=== PATIENT | male | born 1990 | race Caucasian/White ===

== ENCOUNTER 2018-04-15 09:39 | Emergency (ER) | payer MEDICAID ==
[2018-04-15] MEDS ORDERED: Ketorolac INJ* 60 MG/2 ML VIAL IM ONE (11:18)
--- NOTE | 2018-04-15 11:59 | RAD ---
HISTORY: Rt side facial trauma COMPARISONS: None TECHNIQUE: Multiple contiguous axial CT scans were obtained of the face without intravenous contrast, with coronal and sagittal multiplanar reformations. FINDINGS: BONES: There is no displaced fracture or dislocation. The orbital rim is intact. The zygomatic arch is intact. The pterygoid plates are intact. ORBITS: The globes are round. The optic nerves are symmetric. The extraocular musculature is normal. There is no post septal or intraconal inflammatory change. There is no retrobulbar hematoma. PARANASAL SINUSES: There is mucosal thickening of the left maxillary sinus. BRAIN AND SOFT TISSUE: Unremarkable. OTHER: There is carious disease of the first right mandibular molar and of the first left maxillary bicuspid. IMPRESSION: NO FACIAL FRACTURE. CARIOUS DISEASE
[2018-04-15] MEDS ORDERED: traMADol TAB* 50 MG PO ONE (12:40)
--- NOTE | 2018-04-15 12:46 | ED ---
Head Injury - HPI Summary HPI Summary: Pt here w/ facial/dental injury prior to arrival. Was playing basketball with cohort while residing at [facility] this morning when he was struck in the Rt side of his face with an elbow? Fractured a tooth which he reports is painful. He also has a black eye - denies LOC, change in vision, pain w/ ocular movement, [place], neck pain, numbness, tingling, weakness, dizziness, N/V. He reports to h/o multi drug use but is requesting pain control as he's in a lot of pain. - History Of Current Complaint Chief Complaint: EDDentalPain Stated Complaint: FACIAL INJURIES Time Seen by Provider: 04/15/18 10:43 Hx Obtained From: Patient Pain Intensity: 10 - Allergies/Home Medications Allergies/Adverse Reactions: Allergies Allergy/AdvReac Type Severity Reaction Status Date / Time No Known Allergies Allergy Verified 04/15/18 09:48 PMH/Surg Hx/FS Hx/Imm Hx Previously Healthy: Yes Endocrine/Hematology History: Denies: Hx Anticoagulant Therapy, Hx Blood Disorders Infectious Disease History: Yes Infectious Disease History: Denies: Traveled Outside the [place] in Last 30 Days - Family History Known Family History: Positive: Unknown - Social History Lives: [facility] - [facility] Hx Substance Use: Yes Review of Systems Constitutional: Negative Negative: Fatigue Eyes: Negative Negative: Photophobia, Blurred Vision, Diplopia Positive: Dental Pain. Negative: Epistaxis Cardiovascular: Negative Respiratory: Negative Gastrointestinal: Negative Positive: no symptoms reported Musculoskeletal: Negative Positive: Bruising Neurological: Negative Psychological: Normal All Other Systems Reviewed And Are Negative: Yes Physical Exam Triage Information Reviewed: Yes Vital Signs On Initial Exam: Initial Vitals Temp Pulse Resp BP Pulse Ox 97.5 F 95 18 134/75 98 04/15/18 09:42 04/15/18 09:42 04/15/18 09:42 04/15/18 09:42 04/15/18 09:42 Vital Signs Reviewed: Yes Appearance: Positive: Well-Appearing, Well-Nourished, Pain Distress - he reports pain but appears mostly comfortable Skin: Positive: Warm, Skin Color Reflects Adequate Perfusion, Dry - purpuric ecchymosis about Rt orbital region - no external bleeding, no skin breakdown; this area is TTP and along medial border Head/Face: Positive: Other - other than above, normal - no step off, no battlesign, NTTP and no deformity Eyes: Positive: Normal - no photophobia, EOMI, CARTER, Conjunctiva Clear. Negative: Conjunctiva Inflammed, Discharge ENT: Positive: Normal ENT inspection, Hearing grossly normal, Pharynx normal - no signs of trauma to tongue, buccal mucosa, TMs normal - no hemotympanum. Negative: Nasal drainage Dental: Positive: Dental Fracture @ - #30 - gingiva intact, no bleeding - pulp exposed Neck: Positive: Supple, Nontender - FROM w/o pain or restriction Respiratory/Lung Sounds: Positive: Breath Sounds Present Cardiovascular: Positive: Pulses are Symmetrical in both Upper and Lower Extremities Abdomen Description: Positive: Nontender, Soft Musculoskeletal: Positive: Normal, Strength/ROM Intact - no pain or restriction w/ mandible movements Neurological: Positive: Normal, Sensory/Motor Intact, Alert, Oriented to Person Place, Time, CN Intact II-III Psychiatric: Positive: Anxious - but polite and cooperative Procedures - Procedure Summary Procedure Summary: Rt inferior alveolar block w/ bupivicaine - preceded with lidocaine viscous swish and spit. No blood loss. Pt tolerated well. Reports no pain relief of effected tooth. 2ND attempt at dental block at base of effected tooth with bupivicaine - no blood loss. Pt tolerated well but reports minimal improvement. Dycal placed - pt reports slightly more improvement of pain. Diagnostics - Vital Signs Vital Signs Temp Pulse Resp BP Pulse Ox 04/15/18 09:42 97.5 F 95 18 134/75 98 - Laboratory Lab Statement: Any lab studies that have been ordered have been reviewed, and results considered in the medical decision making process. Re-Evaluation - Re-Evaluation First Eval Change: Unchanged Second Eval Change: Improved Head Injury Course/Dx Course Of Treatment: CT report: no facial fx, carrious dz. Pt was offered dental block for acute relief of dental pain. First an inferior alveolar block was attempted but pt reports he still felt tooth pain. 2nd a more local dental block was implemented along with dycal sealant. Pt reports some improvement but still has pain and concerned about block wearing off and sealant moving so tramadol was rx'd. Discussion about h/o illicit drug use but given his current injuries and lack of pain relief with mulitple non-narcotic efforts as mentioned above as well as toradol, this medication was chosen, if for nothing else to aid in sleep until pt can get tooth fixed. Pt advised on close f/u w/ dentist and if he develops danger s/sx of head injury to return to ED. No concern for concussion at this time. - Diagnoses Provider Diagnoses: Periorbital hematoma of right eye, Tooth fracture Discharge - Sign-Out/Discharge Documenting (check all that apply): Discharge/Admit/Transfer - Discharge Plan Condition: Critical Disposition: SUBSTANCE ABUSE REHAB Prescriptions: Ibuprofen TAB* [Motrin TAB* 800 MG] 800 mg PO Q8HR PRN #20 tab PRN Reason: Pain traMADol TAB* [Ultram*] 50 mg PO Q6HR PRN #8 tab MDD 4 PRN Reason: Pain Patient Education Materials: Black Eye (ED), Acute Dental Trauma (ED) Referrals: [facility] [Outside] Additional Instructions: Follow-up with a dentist KAREEM for repair of your dental fracture. You have been given a short supply of tramadol and ibuprofen pain medications which were sent to [facility] in [place]. *If you develop headache, vision change, intractable vomiting, numbness, tingling, or weakness, seek medical attention through staff at [facility] and return to ED as needed. - Billing Disposition and Condition Condition: CRITICAL Disposition: Substance Abuse Rehab
[2018-04-15 13:09] VITALS: BP 149/78
== END 2018-04-15 13:09 ==
LOC: ED 09:39
DX: S00.11XA Contusion of right eyelid and periocular area, initial encounter (principal); S02.5XXA Fracture of tooth (traumatic), initial encounter for closed fracture; K08.89 Other specified disorders of teeth and supporting structures; W50.0XXA Accidental hit or strike by another person, initial encounter; Y92.9 Unspecified place or not applicable
CPT/HCPCS: 70486; 96372; 99282; A9270-GY; J1885

== ENCOUNTER 2019-01-30 14:57 | Emergency (ER) | payer MEDICAID, OTHER ==
[2019-01-30 15:48] LABS: Urine Appearance Clear; Urine Bilirubin Negative (Negative); Urine Blood Negative (Negative); Urine Color Yellow; Urine Glucose Negative (Negative); Urine Ketones Negative (Negative); Urine Nitrite Negative (Negative); Urine Protein Negative (Negative); Urine Specific Gravity 1.004 (1.010-1.030); Urine Urobilinogen Negative (Negative)
[2019-01-30 15:48] LABS: ABS Basophils 0 10^3/ul (0-0.2); ABS Eosinophils 0.2 10^3/ul (0-0.6); ABS Lymphocytes 1.6 10^3/ul (1.0-4.8); ABS Monocytes 1.3 10^3/ul (0-0.8); ABS Neutrophils 5.1 10^3/ul (1.5-7.7); ABS Nucleated RBC 0 10^3/ul; Hematocrit 41 % (36-46); Hemoglobin 14.4 g/dL (14.0-18.0); Lymphocyte % 19.5 %; Mean Corpuscular HGB Conc 35 g/dL (31-36); Mean Corpuscular Hemoglobin 30 pg (27-31); Mean Corpuscular Volume 86 fL (80-94); Mean Platelet Volume 7.2 fL (7.4-10.4); Nucleated Red Blood Cells % 0.1; Platelet Count 199 10^3/uL (150-450); Red Blood Count 4.76 10^6 /uL (4.18-5.48); Red Cell Distribution Width 13 % (10.5-15); White Blood Count 8.3 10^3/uL (3.5-10.8)
[2019-01-30 15:54] LABS: Albumin/Globulin Ratio 1.3 (1-3); BUN/Creatinine Ratio 9.6 (8-20); C Reactive Protein 49.58 mg/L (<8.01); Calcium 8.9 mg/dL (8.6-10.3); EGFR African American 134.5 (>60); EGFR Non-African American 111.1 (>60); Globulin 3.2 g/dL (2-4); Magnesium 1.9 mg/dL (1.9-2.7); Potassium 3.9 mmol/L (3.5-5.0); Total Bilirubin 0.8 mg/dL (0.2-1.0); Total Protein 7.2 g/dL (6.4-8.9)
[2019-01-30 16:13] LABS: Barbiturates Urine Screen None Detected (None Detect); Benzodiazepine Urine Screen None Detected (None Detect); Urine Cannabinoids Screen None Detected (None Detect)
[2019-01-30] MEDS ORDERED: Cyclobenzaprine TAB* 10 MG PO ONE (16:43)
--- NOTE | 2019-01-30 16:52 | ED ---
Back Pain - HPI Summary HPI Summary: Patient is a 28-year-old male who presents to the ED with multiple complaints. He states he has been having low back pain over the course of today and states "my liver and kidneys are shutting down." He denies any urinary symptoms. He states he has had 2 episodes of emesis just before arrival. He denies any fevers, however endorses sweats and chills. He has never had this pain before. He states he takes heroin daily. He states he was sober for about 7 days until 2 days ago when he used heroin again, was unable to get heroin today so "took a white substance" as well as took 8mg suboxone. He states he got this through a friend and is not prescribed these medications. He states "I want to ." He states "I am unable to live with drugs and unable to lift without them and I can't take it anymore." He is tearful. - History of Current Complaint Chief Complaint: EDFlankPain Stated Complaint: LOWER BACK PAIN PER EMS Time Seen by Provider: 01/30/19 14:59 Hx Obtained From: Patient Onset/Duration: Sudden Onset Onset/Duration: Started Hours Ago Timing: Constant Back Pain Location: Is Discrete @ - low back throughout Severity Initially: Moderate Severity Currently: Moderate Pain Intensity: 10 Pain Scale Used: 0-10 Numeric Character: Aching Aggravating Symptom(s): Movement Alleviating Symptom(s): Rest, Position Associated Signs And Symptoms: Positive: Negative - Risk Factors AAA Risk Factors: Negative TAD Risk Factors: Negative Cauda Equina Risk Factors: Negative Epidural Abscess Risk Factors: IV Drug Use - Allergies/Home Medications Allergies/Adverse Reactions: Allergies Allergy/AdvReac Type Severity Reaction Status Date / Time No Known Allergies Allergy Verified 04/15/18 09:48 PMH/Surg Hx/FS Hx/Imm Hx Previously Healthy: Yes - drug use Endocrine/Hematology History: Denies: Hx Anticoagulant Therapy, Hx Blood Disorders - Immunization History Hx Pertussis Vaccination: No Immunizations Up to Date: No Infectious Disease History: Yes Infectious Disease History: Denies: Traveled Outside the [place] in Last 30 Days - Family History Known Family History: Positive: Unknown - Social History Occupation: Unemployed Lives: Alone Alcohol Use: Daily Hx Substance Use: Yes Substance Use Type: Reports: Cocaine, Heroin, Marijuana, Synthetic Drugs Smoking Status (MU): Heavy Every Day Tobacco Smoker Review of Systems Positive: Fever, Chills. Negative: Fatigue, Skin Diaphoresis Negative: Palpitations, Chest Pain Positive: Vomiting - 1 episode just [employer]PUT[employer]. Negative: Abdominal Pain Genitourinary: Negative Positive: no symptoms reported, see HPI. Negative: burning, flank pain, hematuria, incontinence Positive: Arthralgia - low back pain Skin: Negative Negative: Weakness, Paresthesia, Numbness All Other Systems Reviewed And Are Negative: Yes Physical Exam Triage Information Reviewed: Yes Vital Signs On Initial Exam: Initial Vitals Temp Pulse Resp BP Pulse Ox 100.1 F 87 18 147/81 99 01/30/19 15:01 01/30/19 15:01 01/30/19 15:01 01/30/19 15:01 01/30/19 15:01 Vital Signs Reviewed: Yes Appearance: Positive: Well-Appearing, Well-Nourished Skin: Positive: Diaphoretic Head/Face: Positive: Normal Head/Face Inspection Neck: Positive: No Lymphadenopathy Respiratory/Lung Sounds: Positive: Clear to Auscultation Cardiovascular: Positive: RRR, Pulses are Symmetrical in both Upper and Lower Extremities Abdomen Description: Positive: Nontender, Soft Bowel Sounds: Positive: Present Musculoskeletal: Positive: Pain @ - low mid spine on palpation over L1-L5 Neurological: Positive: Sensory/Motor Intact, Alert, Oriented to Person Place, Time, Normal Gait, Speech Normal Psychiatric: Positive: Affect/Mood Appropriate AVPU Assessment: Alert Diagnostics - Vital Signs Vital Signs Temp Pulse Resp BP Pulse Ox 01/30/19 16:34 114/87 01/30/19 16:04 87 126/67 96 01/30/19 16:00 87 96 01/30/19 15:57 85 115/83 96 01/30/19 15:04 90 147/81 99 01/30/19 15:01 100.1 F 87 18 147/81 99 - Laboratory Lab Results: Lab Results 01/30/19 01/30/19 01/30/19 Range/Units 15:27 15:27 15:34 WBC (3.5-10.8) 10^3/uL RBC (4.18-5.48) 10^6 /uL Hgb (14.0-18.0) g/dL Hct (36-46) % MCV (80-94) fL MCH (27-31) pg MCHC (31-36) g/dL RDW (10.5-15) % Plt Count (150-450) 10^3/uL MPV (7.4-10.4) fL Neut % (Auto) % Lymph % (Auto) % [place] % (Auto) % Eos % (Auto) % Baso % (Auto) % Absolute Neuts (auto) (1.5-7.7) 10^3/ul Absolute Lymphs (auto) (1.0-4.8) 10^3/ul Absolute Monos (auto) (0-0.8) 10^3/ul Absolute Eos (auto) (0-0.6) 10^3/ul Absolute Basos (auto) (0-0.2) 10^3/ul Absolute Nucleated RBC 10^3/ul Nucleated RBC % Sodium 129 L (135-145) mmol/L Potassium 3.9 (3.5-5.0) mmol/L Chloride 97 L (101-111) mmol/L Carbon Dioxide 26 (22-32) mmol/L Anion Gap 6 (2-11) mmol/L BUN 8 (6-24) mg/dL Creatinine 0.83 (0.67-1.17) mg/dL Est GFR ( Amer) 134.5 (>60) Est GFR (Non-Af Amer) 111.1 (>60) BUN/Creatinine Ratio 9.6 (8-20) Glucose 105 H (70-100) mg/dL Lactic Acid 0.9 (0.5-2.0) mmol/L Calcium 8.9 (8.6-10.3) mg/dL Magnesium 1.9 (1.9-2.7) mg/dL Total Bilirubin 0.80 (0.2-1.0) mg/dL AST 222 H (13-39) U/L ALT 459 H (7-52) U/L Alkaline Phosphatase 88 (34-104) U/L C-Reactive Protein 49.58 H (<8.01) mg/L Total Protein 7.2 (6.4-8.9) g/dL Albumin 4.0 (3.2-5.2) g/dL Globulin 3.2 (2-4) g/dL Albumin/Globulin Ratio 1.3 (1-3) Lipase 13 (11.0-82.0) U/L Urine Color Yellow Urine Appearance Clear Urine pH 5.0 (5-9) Ur Specific [place] 1.004 L (1.010-1.030) Urine Protein Negative (Negative) Urine Ketones Negative (Negative) Urine Blood Negative (Negative) Urine Nitrate Negative (Negative) Urine Bilirubin Negative (Negative) Urine Urobilinogen Negative (Negative) Ur Leukocyte Esterase Negative (Negative) Urine Glucose Negative (Negative) Urine Opiates Screen (None Detect) Ur Barbiturates Screen (None Detect) Ur Phencyclidine Scrn (None Detect) Ur Amphetamines Screen (None Detect) U Benzodiazepines Scrn (None Detect) Urine Cocaine Screen (None Detect) U Cannabinoids Screen (None Detect) 01/30/19 01/30/19 Range/Units 15:34 15:41 WBC 8.3 (3.5-10.8) 10^3/uL RBC 4.76 (4.18-5.48) 10^6 /uL Hgb 14.4 (14.0-18.0) g/dL Hct 41 (36-46) % MCV 86 (80-94) fL MCH 30 (27-31) pg MCHC 35 (31-36) g/dL RDW 13 (10.5-15) % Plt Count 199 (150-450) 10^3/uL MPV 7.2 L (7.4-10.4) fL Neut % (Auto) 61.6 % Lymph % (Auto) 19.5 % [place] % (Auto) 16.3 % Eos % (Auto) 2.0 % Baso % (Auto) 0.6 % Absolute Neuts (auto) 5.1 (1.5-7.7) 10^3/ul Absolute Lymphs (auto) 1.6 (1.0-4.8) 10^3/ul Absolute Monos (auto) 1.3 H (0-0.8) 10^3/ul Absolute Eos (auto) 0.2 (0-0.6) 10^3/ul Absolute Basos (auto) 0 (0-0.2) 10^3/ul Absolute Nucleated RBC 0 10^3/ul Nucleated RBC % 0.1 Sodium (135-145) mmol/L Potassium (3.5-5.0) mmol/L Chloride (101-111) mmol/L Carbon Dioxide (22-32) mmol/L Anion Gap (2-11) mmol/L BUN (6-24) mg/dL Creatinine (0.67-1.17) mg/dL Est GFR ( Amer) (>60) Est GFR (Non-Af Amer) (>60) BUN/Creatinine Ratio (8-20) Glucose (70-100) mg/dL Lactic Acid (0.5-2.0) mmol/L Calcium (8.6-10.3) mg/dL Magnesium (1.9-2.7) mg/dL Total Bilirubin (0.2-1.0) mg/dL AST (13-39) U/L ALT (7-52) U/L Alkaline Phosphatase (34-104) U/L C-Reactive Protein (<8.01) mg/L Total Protein (6.4-8.9) g/dL Albumin (3.2-5.2) g/dL Globulin (2-4) g/dL Albumin/Globulin Ratio (1-3) Lipase (11.0-82.0) U/L Urine Color Urine Appearance Urine pH (5-9) Ur Specific [place] (1.010-1.030) Urine Protein (Negative) Urine Ketones (Negative) Urine Blood (Negative) Urine Nitrate (Negative) Urine Bilirubin (Negative) Urine Urobilinogen (Negative) Ur Leukocyte Esterase (Negative) Urine Glucose (Negative) Urine Opiates Screen None detected (None Detect) Ur Barbiturates Screen None detected (None Detect) Ur Phencyclidine Scrn None detected (None Detect) Ur Amphetamines Screen None detected (None Detect) U Benzodiazepines Scrn None detected (None Detect) Urine Cocaine Screen None detected (None Detect) U Cannabinoids Screen None detected (None Detect) Result Diagrams: 01/30/19 15:41 01/30/19 15:27 Lab Statement: Any lab studies that have been ordered have been reviewed, and results considered in the medical decision making process. Re-Evaluation - Re-Evaluation First Eval Re-Evaluation Time: 20:15 Comment: patient ambulated to the bathroom without difficulty. patient then states pain increased and is yelling in the room Second Eval Re-Evaluation Time: 21:00 Comment: currently asleep Third Eval Re-Evaluation Time: 23:02 Comment: patient woke up and is screaming Fourth Eval Re-Evaluation Time: 23:34 Comment: patient fell back asleep Back Pain Course/Dx - Course Course Of Treatment: During this patient's course of treatment, he is evaluated for back pain as well as heroin detox. He is also evaluated for mental health. During his treatment, he is stating he wants to kill himself. He is also complaining of continuing back pain. Labs are obtained which show elevated liver enzymes, consistent with his hepatitis C diagnosis. He denies any urinary symptoms. Labs are otherwise normal. He is given Flexeril for back pain. He states this is diffuse back pain and denies any pain directly over the spine. He denies any fevers and vital signs are stable. He believes he is going into withdrawal as his last heroin use was 2 days ago and he took it of Suboxone this morning. This is muscle spasm vs. detox. Drug screen negative. I will not be giving him suboxone at this time as COWS score is: 9 = mild. Will observe for now. Patient will follow up with [facility] and phone number is given. He will also f/u with GI for his hepatitis C as he states he would like treatment. He appears anxious, but when not in room, patient is settled and appears comfortable. Temp on arrival 99.8 and taken again on re- examination at 102.2. Influenza swab obtained. And with fever, at this time, concerned for epidural abscess secondary to drug use. - Diagnoses Provider Diagnoses: Back pain, Substance abuse Discharge - Sign-Out/Discharge Documenting (check all that apply): Patient Departure Patient Received Moderate/Deep Sedation with Procedure: No - Discharge Plan Condition: Good Disposition: HOME Prescriptions: Methocarbamol TAB* [Robaxin 500 MG TAB*] 500 mg PO TID PRN #15 tab PRN Reason: Pain methylPREDNISolone [Medrol Dosepak 4 MG*] 4 mg PO .SEE RONALDO INSTRUCTION #1 packet Patient Education Materials: Back Pain (ED) Referrals: [facility] [Outside] Benson Singh DO [Doctor of Osteopathy] - Silke Ashby MD [Medical Doctor] - Additional Instructions: [facility]: Donovan Dozier MD: for counseling, detox, medications to help ease out of heroin use, etc. Please call the program - they are expecting your phone call Follow up with neurosurgery about findings on MRI Take robaxin three times a day take medrol packet as prescribed ice/heat Establish care with primary Return to ED if develop any new or worsening symptoms - Billing Disposition and Condition Condition: GOOD Disposition: Home
--- NOTE | 2019-01-30 17:49 | ED ---
Progress - Progress Note Progress Note: patient signed out by roman pending MRI. patient has had no previous back surgeries. - Results/Orders Results/Orders: MRI: IMPRESSION: Abnormal distention of the central canal from the levels of T7-T8 to approximately T9-10. This is consistent with syringohydromyelia. Suggest MRI study of the posterior fossa to exclude a Chiari malformation. Re-Evaluation - Re-Evaluation First Eval Re-Evaluation Time: 20:15 Comment: patient ambulated to the bathroom without difficulty. patient then states pain increased and is yelling in the room Second Eval Re-Evaluation Time: 21:00 Comment: currently asleep Third Eval Re-Evaluation Time: 23:02 Comment: patient woke up and is screaming Fourth Eval Re-Evaluation Time: 23:34 Comment: patient fell back asleep Course/Dx - Course Course Of Treatment: During this patient's course of treatment, he is evaluated for back pain as well as heroin detox. He is also evaluated for mental health. During his treatment, he is stating he wants to kill himself. He is also complaining of continuing back pain. Labs are obtained which show elevated liver enzymes, consistent with his hepatitis C diagnosis. He denies any urinary symptoms. Labs are otherwise normal. He is given Flexeril for back pain. He states this is diffuse back pain and denies any pain directly over the spine. He denies any fevers and vital signs are stable. He believes he is going into withdrawal as his last heroin use was 2 days ago and he took it of Suboxone this morning. This is muscle spasm vs. detox. Drug screen negative. I will not be giving him suboxone at this time as COWS score is: 9 = mild. Will observe for now. Patient will follow up with [facility] and phone number is given. He will also f/u with GI for his hepatitis C as he states he would like treatment. He appears anxious, but when not in room, patient is settled and appears comfortable. Temp on arrival 99.8 and taken again on re- examination at 102.2. Influenza swab obtained. And with fever, at this time, concerned for epidural abscess secondary to drug use. patient became upset and was jumping up and down and was able to ambulate to bathroom without difficulty. MRI shows no findings on lumbar and syringohydromyelia on thoracic. discussed case with dr salazar who says that will need MRI brain on elective basis of the brain. patient falls asleep and then wakes up yelling about pain and then falls asleep again. patient is clear for mental health evaulation. after mental health evulation patient is safe for discharge per dr Gonzalez. COWS: 4 after being here for 9 hours. will discharge with muscle relaxer and steriod. told follow up with [facility] and neurosurgery. patient understand and agrees with plan. - Diagnoses Provider Diagnoses: Back pain, Substance abuse - Provider Notifications Discussed Care Of Patient With: Silke Ashby Time Discussed With Above Provider: 21:09 - discussed mri and patient examine and states will need follow up for MRI brain on outpatient basis Discharge - Sign-Out/Discharge Documenting (check all that apply): Patient Departure, Receiving Sign-Out Receiving patient FROM: Roman Walters Patient Received Moderate/Deep Sedation with Procedure: No - Discharge Plan Condition: Good Disposition: HOME Prescriptions: Methocarbamol TAB* [Robaxin 500 MG TAB*] 500 mg PO TID PRN #15 tab PRN Reason: Pain methylPREDNISolone [Medrol Dosepak 4 MG*] 4 mg PO .SEE RONALDO INSTRUCTION #1 packet Patient Education Materials: Back Pain (ED) Referrals: Benson Singh DO [Doctor of Osteopathy] - Silke Ashby MD [Medical Doctor] - [facility] [Outside] Additional Instructions: [facility]: Donovan Dozier MD: for counseling, detox, medications to help ease out of heroin use, etc. Please call the program - they are expecting your phone call Follow up with neurosurgery about findings on MRI Take robaxin three times a day take medrol packet as prescribed ice/heat Establish care with primary Return to ED if develop any new or worsening symptoms - Billing Disposition and Condition Condition: GOOD Disposition: Home
[2019-01-30] MEDS ORDERED: Gadoteridol* (CONTRAST) 279.3 MG/ML 10 ML IV ONE (17:53)
[2019-01-30 17:55] LABS: Influenza A Molecular NEGATIVE (Negative); Influenza B Molecular NEGATIVE (Negative)
[2019-01-30] MEDS ORDERED: Lidocaine PATCH 5%* 1 PATCH TRANSDERM ONE (20:11)
[2019-01-30] MEDS ORDERED: Diazepam TAB(*) 5 MG PO ONE (20:14)
[2019-01-30] MEDS ORDERED: Ketorolac INJ* 30 MG/ML 1 ML VIAL IM ONE (23:01)
[2019-01-30] MEDS ORDERED: Buprenorp/Nalox 2-0.5 MG SL TB 1 EACH TAB.SUBL SL ONE (23:05)
[2019-01-31 00:59] VITALS: BP 108/63
[2019-01-31 03:24] LABS: Erythrocyte Sed Rate 17 mm/Hr (0-15)
[2019-01-31 14:03] LABS: Neisseria gonorrhoeae (GC) RNA Negative (Negative)
--- NOTE | 2019-01-31 14:16 | PN ---
Progress Note - Progress Note Date of Service: 01/31/19 Note: Received phone call from lab at 1:50 PM on 01/31/19 to make aware of staph aureus positive results from blood cultures. Blood cultures +1 out of 4. Attempted to call patient's first listed phone number, reached [facility]. They state he is not currently a resident there and has not been for a very long time. I then made the attempt to call the second listed phone number, "person to notify" which was the father. I spoke with his mother on the phone at 2:10 PM who stated he does not live there and he is no longer welcome there. She states she has not seen him in several weeks and he does not phone them Discussed this with Dr. Bob who recommends sending out a [phone] on this patient at this time. He had information to call the [facility] for a f/u next week. I called [facility] program at 2:20p to make them aware this patient may be calling them and will need to call EMS/police at once for transport to the ED. They voice understanding of this. Will plan to call [facility] back if we are able to get ahold of the patient. Called [facility], [facility] Gallegos at 2:35p who is making the attempt to contact his peer counselor who he showed up to the [facility] with yesterday. She will tell patient to come back to the ED immediately. 2nd set blood cultures called in at 3:20p to myself. 2nd BC + for staph aureaus. Will continue to search for patient.
[2019-01-31] MEDS ORDERED: Lidocaine Patch REMOVE* 1 NOTE MISC PATCH OFF SCH (21:00)
== END 2019-01-31 00:57 | disposition home or self-care (01) ==
LOC: ED 14:57
DX: M54.5 Low back pain (principal); F11.10 Opioid abuse, uncomplicated; F14.10 Cocaine abuse, uncomplicated; F12.10 Cannabis abuse, uncomplicated; F17.210 Nicotine dependence, cigarettes, uncomplicated
CPT/HCPCS: 36415; 72157; 72158; 80053; 80307; 81003; 83605; 83690; 83735; 85025; 85652; 86140; 87040; 87077; 87150; 87186; 87205; 87491; 87591; 96360; 96372; 99285; A9270-GY; A9579; J1885

== ENCOUNTER 2019-02-03 02:20 | Inpatient (IN) | payer MEDICAID ==
[2019-02-03] MEDS ORDERED: Acetaminophen TAB* 325 MG ONE (02:36)
[2019-02-03] MEDS ORDERED: Ketorolac INJ* 30 MG/ML 1 ML VIAL IV PUSH ONE (02:53)
[2019-02-03] MEDS ORDERED: Morphine 4 MG/ML VIAL (1 ml) 4 MG/ML VIAL IV ONE (02:53)
[2019-02-03] MEDS: NS 0.9% 1000 ML** 2,000 ML IV ONE ×2 (02:55→03:51)
--- NOTE | 2019-02-03 03:00 | ED ---
Complex/Multi-Sys Presentation - HPI Summary HPI Summary: A 28 y/o male presents to [facility] with a chief complaint of pain everywhere. He reports back pain, fever, N/V, SOB, abdominal pain and chest pain. He was in the ED 01/30/19 and claims that his pain is worse now. At triage he rated his pain as a 10/10 and temperature of 101.7 was noted. He is screaming in pain. He says that the most he can do is stand up then sit back down without aggravating his pain. Pt is a smoker. Hx of heroin use. - History Of Current Complaint Chief Complaint: EDAbdPain Time Seen by Provider: 02/03/19 02:44 Hx Obtained From: Patient, EMS Onset/Duration: Sudden Onset, Lasting Hours, Still Present Timing: Constant, Hours Severity Currently: Severe Severity Initially: Severe Location: Pain At: - everywhere Character: Unable To Describe Aggravating Factor(s): nothing Alleviating Factor(s): nothing Associated Signs And Symptoms: Positive: SOB, Nausea, Vomiting, Abdominal Pain, Back Pain - Allergies/Home Medications Allergies/Adverse Reactions: Allergies Allergy/AdvReac Type Severity Reaction Status Date / Time No Known Allergies Allergy Verified 02/03/19 09:47 PMH/Surg Hx/FS Hx/Imm Hx Endocrine/Hematology History: Denies: Hx Anticoagulant Therapy, Hx Blood Disorders, Hx Diabetes Cardiovascular History: Denies: Hx Hypertension, Hx Pacemaker/ICD Respiratory History: Denies: Hx Asthma History: Denies: Hx Renal Disease Sensory History: Denies: Hx Hearing Aid Psychiatric History: Denies: Hx Panic Disorder, Hx of Violent Episodes Against Others Comment Only: Hx Eating Disorder - "probably yeah. Im a glutton to the [place]" - Surgical History Surgery Procedure, Year, and Place: elbow orif Infectious Disease History: No Infectious Disease History: Denies: Traveled Outside the [place] in Last 30 Days - Family History Known Family History: Positive: Unknown - Social History Alcohol Use: Daily Hx Substance Use: Yes Substance Use Type: Reports: Cocaine, Heroin, Marijuana, Synthetic Drugs Smoking Status (MU): Heavy Every Day Tobacco Smoker Review of Systems Positive: Fever - 101.7 Positive: Chest Pain Positive: Abdominal Pain, Vomiting, Nausea Positive: Myalgia All Other Systems Reviewed And Are Negative: Yes Physical Exam - Summary Physical Exam Summary: Appearance: Very anxious appearing man, no acute distress, noted to be febrile, Skin: Warm, dry, No lesions on fingernails, No apparent rash Eyes: sclera anicteric, no conjunctival pallor ENT: mucous membranes moist, pharynx appears normal Neck: Supple, nontender Respiratory: Clear to auscultation, no signs of respiratory distress Cardiovascular: Normal S1, S2. No murmurs. Normal distal pulses in tibial and radial bilaterally. Abdomen: Lower abdominal tenderness, difficult to examine due to patient using his hands to cover his abdomen, Musculoskeletal: Normal, Strength/ROM Intact Neurological: A&Ox3, awake and alert, mentation is normal, speech is fluent and appropriate Psychiatric: affect is normal, does not appear anxious or depressed Triage Information Reviewed: Yes Vital Signs On Initial Exam: Initial Vitals Temp Pulse Resp BP Pulse Ox 101.7 F 122 22 111/65 97 02/03/19 02:25 02/03/19 02:25 02/03/19 02:25 02/03/19 02:25 02/03/19 02:25 Vital Signs Reviewed: Yes Diagnostics - Vital Signs Vital Signs Temp Pulse Resp BP Pulse Ox 02/03/19 02:25 101.7 F 122 22 111/65 97 - Laboratory Result Diagrams: 02/04/19 05:55 02/04/19 05:55 Lab Statement: Any lab studies that have been ordered have been reviewed, and results considered in the medical decision making process. - Radiology CXR Radiology Interpretation Completed By: ED Physician Summary of Radiographic Findings: No acute process. Pending official imaging report. Complex Multi-Symp Course/Dx Course Of Treatment: A 28 y/o male presents to [facility] with a chief complaint of pain everywhere. He reports back pain, fever, N/V, SOB, abdominal pain and chest pain. He was in the ED 01/30/19 and claims that his pain is worse now. At triage he rated his pain as a 10/10 and temperature of 101.7 was noted. He is screaming in pain. He says that the most he can do is stand up then sit back down without aggravating his pain. Pt is a smoker. Hx of heroin use. The physical exam revealed that the patient is a very anxious appearing man in no acute distress, noted to be febrile, Lower abdominal tenderness, difficult to examine due to patient using his hands to cover his abdomen, No lesions on fingernails, No apparent rashIn the ED course the patient was given Tylenol, Toradol, Morphine and Sodium Chloride IV. CXR showed no acute process. Bloodwork and chemistries obtained. Case discussed with Dr. Garcia, hospitalist, who accepted the patient for admission. The patient is agreeable with this plan. - Diagnoses Provider Diagnoses: Bacteremia, Intravenous drug abuse, Endocarditis - Physician Notifications Discussed Care Of Patient With: Margret Garcia Time Discussed With Above Provider: 02:57 Instructed by Provider To: Admit As Inpatient Discharge - Sign-Out/Discharge Documenting (check all that apply): Patient Departure - admit All imaging exams completed and their final reports reviewed: Yes Patient Received Moderate/Deep Sedation with Procedure: No - Discharge Plan Condition: Fair Disposition: ADMITTED TO [facility] - Billing Disposition and Condition Condition: FAIR Disposition: Admitted to [facility] - Attestation Statements Document Initiated by Cristal: Yes Documenting Scribe: Bradley Villasenor Provider For Whom Cristal is Documenting (Include Credential): Santo Willett MD Scribe Attestation: Bradley Macdonald, scribed for Santo Willett MD on 02/04/19 at 1321. Scribe Documentation Reviewed: Yes Provider Attestation: The documentation as recorded by the Bradley tejeda accurately reflects the service I personally performed and the decisions made by Santo geronimo MD Status of Scribe Document: Viewed
[2019-02-03 03:19] LABS: ABS Basophils 0 10^3/ul (0-0.2); ABS Eosinophils 0.9 10^3/ul (0-0.6); ABS Lymphocytes 0.9 10^3/ul (1.0-4.8); ABS Monocytes 1.3 10^3/ul (0-0.8); ABS Neutrophils 11.4 10^3/ul (1.5-7.7); ABS Nucleated RBC 0 10^3/ul; Eosinophil % 6.1 %; Hematocrit 35 % (36-46); Hemoglobin 12.1 g/dL (14.0-18.0); Lymphocyte % 6.1 %; Mean Corpuscular HGB Conc 35 g/dL (31-36); Mean Corpuscular Hemoglobin 30 pg (27-31); Mean Corpuscular Volume 86 fL (80-94); Mean Platelet Volume 9.2 fL (7.4-10.4); Nucleated Red Blood Cells % 0; Platelet Count 122 10^3/uL (150-450); Red Blood Count 4.03 10^6 /uL (4.18-5.48); Red Cell Distribution Width 13 % (10.5-15); White Blood Count 14.5 10^3/uL (3.5-10.8)
[2019-02-03] MEDS ORDERED: NS 0.9% 500 ML* 500 ML IV ONE (03:31)
[2019-02-03 03:42] LABS: Albumin 3.3 g/dL (3.2-5.2); BUN/Creatinine Ratio 13.4 (8-20); C Reactive Protein 130.56 mg/L (<8.01); Calcium 8.6 mg/dL (8.6-10.3); EGFR African American 112.3 (>60); EGFR Non-African American 92.8 (>60); Globulin 3.2 g/dL (2-4); Potassium 3.7 mmol/L (3.5-5.0); Total Bilirubin 1.6 mg/dL (0.2-1.0); Total Protein 6.5 g/dL (6.4-8.9)
[2019-02-03 03:44] LABS: Troponin I 0.02 ng/mL (<0.04)
[2019-02-03] MEDS ORDERED: Magnesium Hydroxide LIQ* 30 ML UDC PO PRN (04:11)
[2019-02-03] MEDS: Oxacillin(*) 2 GM in NS 0.9% 100 ML* 100 ML IVPB SCH ×6 (04:12→23:06)
[2019-02-03] MEDS: NS 0.9% 1000 ML** 1,000 ML IV SCH ×2 (05:31→15:38)
[2019-02-03] MEDS: Nicotine PATCH 21 MG/24 HR* PATCH TRANSDERM SCH ×2 (05:31→05:43)
[2019-02-03 06:21] LABS: Urine Appearance Clear; Urine Bacteria Absent (Absent); Urine Bilirubin Negative (Negative); Urine Blood 1+ (Negative); Urine Color Yellow; Urine Glucose Negative (Negative); Urine Ketones Negative (Negative); Urine Nitrite Negative (Negative); Urine Protein Negative (Negative); Urine Red Blood Cell Trace(0-2/hpf) (Absent); Urine Specific Gravity 1.008 (1.010-1.030); Urine Urobilinogen Negative (Negative); Urine White Blood Cell Trace(0-5/hpf) (Absent)
--- NOTE | 2019-02-03 06:56 | HP ---
HISTORY AND PHYSICAL: DATE OF ADMISSION: 02/03/19 PRIMARY CARE PHYSICIAN: None. CHIEF COMPLAINT: "Pain all over." HISTORY OF PRESENT ILLNESS: Tunde Miles is a 28-year-old male with history of drug use, who originally presented to this hospital on 01/30/19 with complaints of pain all over. He also at that point was febrile. The patient at that point was discharged from the emergency department, but his cultures came back positive 24 hours later and the ED provider had been trying to contact to find patient to tell him to come back to the ED. The patient stated that he came back to the ED today because the pain all over was unbearable. He stated that he had been living in [place] up to about 2 weeks ago, he went to [place] for methadone and opioid addiction rehab for approximately 4 to 5 days and he signed out of it because he could not stand being confined to a small space. After rehab, he decided to inject heroin "one last time." Moved to [facility] and injected heroin. Later on, he was given meth that he also had been using as well as some more heroin and the last heroin use was approximately 5 days ago. The patient was given a buccal film of Suboxone that he diluted in water and injected 24 hours ago. He has had been febrile off and on for several days now and pain all over had been ongoing for "weeks," but it has been more severe recently and concentrating mostly in the cervical back area. The patient is going to be admitted for sepsis due to likely endocarditis. The patient's cultures from 3 days ago were positive for methicillin-sensitive Staphylococcus aureus in all bottles. PAST MEDICAL HISTORY: 1. History of hepatitis C. 2. History of ORIF of left humerus. 3. History of drug use and tobacco use. MEDICATIONS: The patient stated that he was given clindamycin by a friend from the rescue mission. He had the clindamycin approximately 15 hours ago. The last dose of Suboxone he injected approximately 24 hours ago. He also had been given gabapentin "on the street." ALLERGIES: No known drug allergies. FAMILY HISTORY: The patient's parents live across [place], [place], and he indicates his father as surrogate. His father's name is Naresh Miles and the phone number is [phone]. SOCIAL HISTORY: Apart from polysubstance abuse, patient stated that he does not drink alcohol, but uses marijuana and smokes "a lot of cigarettes" ever since he turned 8 years old. REVIEW OF SYSTEMS: Please see history of present illness. In addition to the above mentioned, the patient stated that "everything hurts." His abdomen hurts , his chest hurts, his back hurts. His both arms hurt. He has been constipated for several days now. The patient also stated that he has had poor dentition due to use of methamphetamines in the past. PHYSICAL EXAMINATION GENERAL: The patient is a pleasant 28-year-old male who is in no acute distress. The patient is alert, awake, and oriented x3. VITAL SIGNS: Blood pressure of 111/65, heart rate of 122 and regular, respiratory rate 22, oxygen saturation 97% on room air, temperature of 101.7. HEENT: Head atraumatic, normocephalic. Eyes: Pupils are equal and reactive to light and accommodation. Oropharynx is clear. Mucosa moist. NECK: Supple. No JVD. No bruit bilaterally. The patient does not exhibit neck stiffness, but his neck is tender to palpation proximally to his occipital region. RESPIRATORY: Clear to auscultation bilaterally. CARDIOVASCULAR: Regular rate and rhythm. No murmur. Tachycardia. ABDOMEN: Soft, nontender. Bowel sounds are present in all 4 quadrants. EXTREMITIES: There is no edema, pulses +2 bilaterally. There is no clubbing and cyanosis. NEURO EVALUATION: Speech is clear. Cranial nerves II through XII grossly intact. Motor strength is 5/5 in bilaterally. SKIN: On evaluation of the skin, the patient actually does not appear to have significant track wilson in his antecubital fossa, which he states he uses for injection. The left humerus on palpation is somewhat deformed due to history of old fracture. His skin is flushed, but no evidence of cellulitis noted. There are no splinter hemorrhages. No conjunctival hemorrhage. No Janeway lesions noted. DIAGNOSTIC STUDIES/LAB DATA: Laboratory data showed white blood cell count of 14.5, hemoglobin of 12.1, hematocrit 35, and platelets of 122. Sodium 124, potassium 3.7, chloride 90, carbon dioxide 27, BUN 13, creatinine 0.97. Liver function test shows bilirubin 1.6. AST of 128, ALT of 152, C-reactive protein of 130, troponin of 0.02. From the patient's past laboratory values, patient has had hepatitis C antibody highly reactive on 04/11/18. His last HIV was nonreactive at that time also. The patient's portable chest x-ray revealed by myself prior to the official radiologist's report shows no evidence of cardiopulmonary abnormality. The patient had thoracic and lumbar spine MRIs obtained on 01/30/19. Those were obtained with contrast. 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 ASSESSMENT AND PLAN: 1. The patient is septic likely due to endocarditis. His blood cultures were positive for methicillin-susceptible Staphylococcus aureus on 01/30/19. He already received 2 L of intravenous hydration in the emergency room and I am going to treat him with another 500 mL bolus for 30 mL/kg bolus for sepsis. The patient is going to be started on Oxacillin 2 g every 4 hours. Blood cultures were obtained. He is going to have transthoracic echocardiogram today and he will need ALVARO if the transthoracic echocardiogram was negative. 2. The patient has diffuse pain, but he states that the pain is at its worst in his cervical back. At this point, he already had an MRI of his thoracic and lumbar spine with contrast. I am going to obtain an MRI of the cervical spine with contrast to rule out epidural abscess. 3. In discussion about the patient's pain medications at this point, the patient would like to abstain from Suboxone. He is agreeable to methadone. He is going to be placed on methadone. 4. The patient's liver function tests are elevated likely due to combination of history of hepatitis C, as well as sepsis. 5. The patient has history of IV drug use. 6. At this point, the patient is going to be continued on methadone. He is agreeable to HIV testing at this point. He has known hepatitis C that was never treated. 7. For DVT prophylaxis, the patient is low risk, and ambulation is encouraged. 8. For history of tobacco abuse, the patient is going to be placed on nicotine patch. 9. The patient has hyponatremia, which is hypochloremic, likely due to a prerenal state and dehydration. The patient is going to be placed on intravenous hydration. 10. The patient's code status is full, and his surrogate is his father as mentioned above. TIME SPENT: Approximately 75 minutes were spent on admission of this patient. More than half that time was spent [id number] with the patient during the interview and physical exam. [id number]/[facility] #: [id number] CLARITA
[2019-02-03] MEDS: Docusate CAP* 100 MG PO SCH ×2 (08:32→19:45)
[2019-02-03] MEDS: Senna TAB PO SCH ×2 (08:32→19:46)
[2019-02-03] MEDS ORDERED: Gadoteridol* (CONTRAST) 279.3 MG/ML 10 ML IV SCH (09:07)
--- NOTE | 2019-02-03 10:23 | PN ---
Subjective Date of Service: 02/03/19 Interval History: Mr. Miles continues to complain of generalized pain mostly in his low back. He is adamant that he needs IV morphine and has thus far refused to even try methadone as he states it won't work. He denies other complaint. Objective Active Medications: Acetaminophen (Tylenol Tab*) 650 mg PO Q4H PRN Docusate Sodium (Colace Cap*) 100 mg PO BID [facility] Gadoteridol (Prohance* (Contrast)) 17 ml IV ONCE [facility] Oxacillin Sodium 2 gm/ Sodium (Chloride) 100 mls @ 200 mls/hr IVPB Q4H [facility] Sodium Chloride (Ns 0.9% 1000 Ml) 1,000 mls @ 125 mls/hr IV PER RATE [facility] Magnesium Hydroxide (Milk Of Magnmeena Liq*) 30 ml PO Q4H PRN Methadone HCl (Dolophine Tab*) 10 mg PO Q6H PRN Nicotine (Nicotine Patch 21 Mg/24 Hr*) 1 patch TRANSDERM DAILY [facility] Pharmacy Profile Note (Nicotine Patch Removal Note*) 1 note PATCH OFF 2100 [facility] Senna (Senokot Tab*) 1 tab PO BID [facility] Vital Signs: Temp Pulse Resp BP Pulse Ox 98.1 F 84 18 100/58 95 02/03/19 07:37 02/03/19 07:37 02/03/19 07:37 02/03/19 07:37 02/03/19 07:37 Oxygen Devices in Use Now: None Appearance: male lying in bed in NAD Eyes: No Scleral Icterus Ears/Nose/Mouth/Throat: Mucous Membranes Moist Neck: Trachea Midline Respiratory: Symmetrical Chest Expansion and Respiratory Effort, Clear to Auscultation Cardiovascular: NL Sounds; No Murmurs; No JVD, No Edema Abdominal: NL Sounds; No Tenderness; No Distention Extremities: No Edema Skin: No Rash or Ulcers Neurological: Alert and Oriented x 3, NL Muscle Strength and Tone Nutrition: Taking PO's Result Diagrams: 02/03/19 03:07 02/03/19 12:27 Assess/Plan/Problems-Billing Assessment: Mr. Miles is a 28 yo M with a PMH of IVDA who was admitted on 02/03/19 with sepsis and concern for endocarditis. - Patient Problems (1) Sepsis Comment: - WBC 14 on arrival, CRP 130, max T 101.7. - From staph bacteremia (2) Staphylococcus aureus bacteremia Comment: - Blood cultures positive from ED visit on 01/30/19 - Continue oxacillin - Transthoracic echo pending - Thoracic, Lumbar and Cervical spine MRI negative for evidence of focal infection. (3) Back pain Comment: - Cervical, thoracic and lumbar spine MRI negative - Complaining of low back pain now - Continue methadone and toradol, do not see indication for IV narcotics (4) Intravenous drug abuse Comment: - No evidence of withdrawal - Social work consult placed (5) Hyponatremia Comment: - Na 124, likely hypovolemic with dehydration - Continue IVF, recheck NA this afternoon (6) Elevated LFTs Comment: - Suspect secondary to sepsis, also hx of hep c. HIV pending - Trend (7) Nicotine abuse Comment: - Nicotine replacement therapy available prn - Smoking cessation counseling offered (8) DVT prophylaxis Comment: - SCDs (9) Full code status
[2019-02-03 11:14] LABS: Erythrocyte Sed Rate 59 mm/Hr (0-15)
[2019-02-03] MEDS ORDERED: Ketorolac INJ* 15 MG/ML 1 ML VIAL IV PUSH PRN (11:23)
[2019-02-03] MEDS ORDERED: Ketorolac TAB * 10 MG TAB PO PRN (11:26)
[2019-02-03 12:50] LABS: EGFR African American 125.7 (>60); EGFR Non-African American 103.9 (>60); Potassium 3.4 mmol/L (3.5-5.0)
[2019-02-03] MEDS ORDERED: Morphine 10 MG/ML VIAL (1 ml) IV PRN (15:29)
[2019-02-03] MEDS ORDERED: Morphine 10 MG/ML VIAL (1 ml) IV ONE (15:33)
[2019-02-03] MEDS: Acetaminophen TAB* 325 MG PO PRN ×2 (15:38→20:16)
[2019-02-03] MEDS: Methadone TAB* 10 MG PO PRN ×2 (16:39→22:47)
[2019-02-03] MEDS: Nicotine Patch Removal NOTE PATCH OFF SCH (19:46)
[2019-02-04] MEDS: Acetaminophen TAB* 325 MG PO PRN ×3 (00:23→20:16)
[2019-02-04] MEDS: Oxacillin(*) 2 GM in NS 0.9% 100 ML* 100 ML IVPB SCH ×5 (05:00→20:17)
[2019-02-04] MEDS: Methadone TAB* 10 MG PO PRN ×2 (06:03→12:05)
[2019-02-04 06:26] LABS: ABS Basophils 0 10^3/ul (0-0.2); ABS Eosinophils 1.2 10^3/ul (0-0.6); ABS Lymphocytes 0.8 10^3/ul (1.0-4.8); ABS Neutrophils 8.3 10^3/ul (1.5-7.7); ABS Nucleated RBC 0 10^3/ul; Eosinophil % 10.5 %; Hematocrit 36 % (36-46); Hemoglobin 12.2 g/dL (14.0-18.0); Lymphocyte % 6.8 %; Mean Corpuscular HGB Conc 34 g/dL (31-36); Mean Corpuscular Hemoglobin 30 pg (27-31); Mean Corpuscular Volume 89 fL (80-94); Mean Platelet Volume 8.6 fL (7.4-10.4); Nucleated Red Blood Cells % 0; Platelet Count 133 10^3/uL (150-450); Red Blood Count 4.04 10^6 /uL (4.18-5.48); Red Cell Distribution Width 14 % (10.5-15); White Blood Count 11.3 10^3/uL (3.5-10.8)
[2019-02-04 06:30] LABS: INR 1.05 (0.77-1.02)
[2019-02-04 06:43] LABS: Albumin 2.8 g/dL (3.2-5.2); BUN/Creatinine Ratio 13.4 (8-20); Calcium 8.1 mg/dL (8.6-10.3); EGFR African American 136.4 (>60); EGFR Non-African American 112.7 (>60); Globulin 2.9 g/dL (2-4); Indirect Bilirubin 0.7 mg/dL (0.3-1.0); Potassium 3.7 mmol/L (3.5-5.0); Total Bilirubin 2.3 mg/dL (0.2-1.0); Total Protein 5.7 g/dL (6.4-8.9)
[2019-02-04] MEDS: Docusate CAP* 100 MG PO SCH ×2 (08:09→21:29)
[2019-02-04] MEDS: Nicotine PATCH 21 MG/24 HR* PATCH TRANSDERM SCH (08:10)
[2019-02-04] MEDS: Senna TAB PO SCH ×2 (08:10→21:29)
[2019-02-04] MEDS: NS 0.9% 1000 ML** 1,000 ML IV SCH (11:52)
--- NOTE | 2019-02-04 16:00 | PN ---
Subjective Date of Service: 02/04/19 Interval History: C/O sore tongue, poor appetite but drinks OK. Objective Active Medications: Acetaminophen (Tylenol Tab*) 650 mg PO Q4H PRN PRN Reason: FEVER/PAIN Last Admin: 02/04/19 13:03 Dose: 650 mg Docusate Sodium (Colace Cap*) 100 mg PO BID [facility] Last Admin: 02/04/19 08:09 Dose: Not Given Gadoteridol (Prohance* (Contrast)) 17 ml IV ONCE [facility] Stop: 02/05/19 09:06 Last Admin: 02/03/19 09:45 Dose: 17 ml Oxacillin Sodium 2 gm/ Sodium (Chloride) 100 mls @ 200 mls/hr IVPB Q4H [facility] Last Admin: 02/04/19 12:05 Dose: 200 mls/hr Sodium Chloride (Ns 0.9% 1000 Ml) 1,000 mls @ 125 mls/hr IV PER RATE [facility] Last Admin: 02/04/19 11:52 Dose: 125 mls/hr Ketorolac Tromethamine (Toradol Tab *) 10 mg PO Q6H PRN PRN Reason: PAIN Stop: 02/07/19 11:25 Last Admin: 02/03/19 12:31 Dose: 10 mg Magnesium Hydroxide (Milk Of Magnesia Liq*) 30 ml PO Q4H PRN PRN Reason: CONSTIPATION Nicotine (Nicotine Patch 21 Mg/24 Hr*) 1 patch TRANSDERM DAILY [facility] Last Admin: 02/04/19 08:10 Dose: Not Given Pharmacy Profile Note (Nicotine Patch Removal Note*) 1 note PATCH OFF 2100 [facility] Last Admin: 02/03/19 19:46 Dose: Not Given Senna (Senokot Tab*) 1 tab PO BID [facility] Last Admin: 02/04/19 08:10 Dose: Not Given Vital Signs - 8 hr 02/04/19 02/04/19 02/04/19 08:00 08:04 08:16 Temperature 99.2 F Pulse Rate 105 Respiratory 18 18 16 Rate Blood Pressure 127/71 (mmHg) O2 Sat by Pulse 97 96 Oximetry 02/04/19 02/04/19 02/04/19 12:05 12:34 12:58 Temperature 100.1 F 102.1 F Pulse Rate 101 Respiratory 20 20 Rate Blood Pressure 138/57 (mmHg) O2 Sat by Pulse 97 Oximetry Oxygen Devices in Use Now: None Appearance: Alert, in fair spirits. Looks comfortable but restless. Eyes: No Scleral Icterus Neck: NL Appearance and Movements; NL JVP, No Thyroid Enlargement, Masses Respiratory: Symmetrical Chest Expansion and Respiratory Effort, Clear to Auscultation, Clear to Percussion Cardiovascular: NL Sounds; No Murmurs; No JVD, RRR, No Edema, - - tachycardic Extremities: No Edema, No Clubbing, Cyanosis, - Skin: No Rash or Ulcers, No Nodules or Sclerosis, - Neurological: Alert and Oriented x 3, NL Sensation Result Diagrams: 02/04/19 05:55 02/04/19 05:55 Microbiology and Other Data: Microbiology 02/03/19 03:07 Aerobic Blood Culture - Preliminary Blood Venous Staphylococcus Aureus Anaerobic Blood Culture - Preliminary Staphylococcus Aureus 02/03/19 03:08 Aerobic Blood Culture - Preliminary Blood Venous Staphylococcus Aureus Anaerobic Blood Culture - Preliminary Staphylococcus Aureus Blood MRSA/MSSA (PCR) - Final Mrsa Negative S.aureus Positive 02/03/19 05:28 Urine Culture - Final Urine No Growth (<1,000 CFU/mL) Assess/Plan/Problems-Billing Assessment: Mr. Miles is a 28 yo M with a PMH of IVDA who was admitted on 02/03/19 with sepsis and concern for endocarditis. - Patient Problems (1) Bacteremia Current Visit: Yes Status: Acute Code(s): R78.81 - BACTEREMIA SNOMED Code( s): 8826824 Comment: MSSA, on oxacillin. Echo tomorrow, if neg would proceed to ALVARO. Fup blood C&S x 2 on 02/05. (2) Opiate abuse, continuous Current Visit: Yes Status: Acute Code(s): F11.10 - OPIOID ABUSE, UNCOMPLICATED SNOMED Code(s): 1313597 Comment: Scheduled mnthadone 10 mg q 6 hr start schedul 02/04. (3) Tobacco abuse Current Visit: Yes Status: Acute Code(s): Z72.0 - TOBACCO USE SNOMED Code( s): 104234289 Comment: Pt refused nicotine patch, left floor without notice to smoke outside building.
[2019-02-04] MEDS: Methadone TAB* 10 MG PO SCH (18:24)
[2019-02-04] MEDS ORDERED: Ibuprofen TAB* 800 MG PO ONE (21:12)
[2019-02-04] MEDS: Nicotine Patch Removal NOTE PATCH OFF SCH (21:29)
[2019-02-05] MEDS: Oxacillin(*) 2 GM in NS 0.9% 100 ML* 100 ML IVPB SCH ×6 (00:24→19:55)
[2019-02-05] MEDS: Acetaminophen TAB* 325 MG PO PRN ×4 (00:26→19:50)
[2019-02-05] MEDS: Methadone TAB* 10 MG PO SCH ×4 (01:05→20:01)
[2019-02-05] MEDS: Docusate CAP* 100 MG PO SCH ×2 (09:02→21:01)
[2019-02-05] MEDS: Nicotine PATCH 21 MG/24 HR* PATCH TRANSDERM SCH (09:02)
[2019-02-05] MEDS: Senna TAB PO SCH ×2 (09:03→21:01)
--- NOTE | 2019-02-05 09:54 | ECHO ---
Patient: LAISHA BAUTISTA [facility] Rec#: [id number] : 1990 Date: 02/05/2019 Age: 28y Height: 183 cm / 72.0 in Weight: 83 kg / 182.9 lbs Sex: M BSA: 2.05 Room#: [facility] Admit Date#: 02/03/2019 Type: Inpatient [id number] Reading: Benja Daigle MD Batch Or Continuous Still Operator[facility] Transthoracic Echocardiogram Indication: Bacteremia BP: 115/59 HR: 65 Rhythm: NSR Findings History: Smoker, IVDU, sepsis, Staph aureus current admission. Technical Comments: The study quality is good. Completed at 0830. Left Ventricle: The left ventricular chamber size is mildly dilated. There is no left ventricular hypertrophy. Left ventricular systolic function is at the lower limits of normal. The estimated ejection fraction is 50-55%. Normal left ventricular diastolic filling is observed. Left Atrium: The left atrium is slightly dilated. Right Ventricle: Moderator Band present. The right ventricle is moderately dilated. The right ventricular global systolic function is normal. Right Atrium: The right atrium is mildly dilated. Aortic Valve: The aortic valve is trileaflet. There is no evidence of aortic valve thickening. There is no evidence of aortic regurgitation. There is no evidence of aortic stenosis. There is no aortic vegetation present. Mitral Valve: The mitral valve leaflets are mildly thickened. There is trace to mild mitral regurgitation. There is no evidence of mitral stenosis. No vegetation is observed on the mitral valve. Tricuspid Valve: The tricuspid valve leaflets are normal. There is mild to moderate tricuspid regurgitation. The right ventricular systolic pressure is estimated at 39 mmHg. There is evidence of mild pulmonary hypertension. There is no tricuspid stenosis. No vegetation is observed on the tricuspid valve. Pulmonic Valve: The pulmonic valve appears normal. There is trace to mild pulmonic regurgitation. There is no pulmonic stenosis. No vegetation is observed on the pulmonic valve. Pericardium: There is no significant pericardial effusion. Aorta: There is no dilatation of the ascending aorta. There is no dilatation of the aortic arch. There is mild dilatation of the aortic root. Pulmonary Artery: The main pulmonary artery appears normal. Venous: The inferior vena cava appears normal in size. There is a greater than 50% respiratory change in the inferior vena cava dimension. Summary: There was not any prior study for comparison. Conclusions There is no left ventricular hypertrophy. Left ventricular systolic function is at the lower limits of normal. The estimated ejection fraction is 50-55%. The right ventricular global systolic function is normal. There is no evidence of aortic stenosis. There is no aortic vegetation present. There is trace to mild mitral regurgitation. No vegetation is observed on the mitral valve. There is mild to moderate tricuspid regurgitation. There is evidence of mild pulmonary hypertension. No vegetation is observed on the tricuspid valve. No vegetation is observed on the pulmonic valve. There is no significant pericardial effusion. Measurements Name Value Normal Range RVIDd (AP) 2D 3.5 cm (0.9 - 2.6) RVDdMajor (2D) 5.9 cm (2.2 - 4.4) RAd ISD 4CH 4.9 cm (3.4 - 4.9) RA (A4C)W 5 cm (2.9 - 4.6) IVSd (2D) 0.9 cm (0.6 - 1) LVPWd (2D) 1 cm (0.6 - 1) LVIDd (2D) 5.8 cm (3.6 - 5.4) LVIDs (2D) 4.2 cm - LV FS (2D) 27 % (25 - 45) Aortic Annulus 2 cm (1.4 - 2.6) Ao root diameter (2D) 3.7 cm (2.1 - 3.5) Ascending Ao 2.8 cm (2.1 - 3.4) Aortic arch 3.2 cm (1.8 - 3.4) LA dimension (AP) 2D 3.7 cm (2.3 - 3.8) LAd ISD 4CH 5 cm (2.9 - 5.3) LA ISD 4CH W 4.7 cm (2.5 - 4.5) Name Value Normal Range LA ESV BP (A/L) index 34 ml/m2 - Name Value Normal Range MV E-wave Vmax 0.9 m/sec - MV deceleration time 282 msec - MV A-wave Vmax 0.4 m/sec - MV E:A ratio 2.2 ratio - LV septal e' Vmax 0.14 m/sec - LV lateral e' Vmax 0.14 m/sec - LV E:e' septal ratio 6.4 ratio - LV E:e' lateral ratio 6.4 ratio - Name Value Normal Range AV Vmax 1.4 m/sec - AV VTI 32 cm - AV peak gradient 7 mmHg - AV mean gradient 5 mmHg - LVOT Vmax 0.9 m/sec - LVOT VTI 21 cm - LVOT peak gradient 3 mmHg - LVOT mean gradient 2 mmHg - NILDA Vmax 1.1 m/sec - Name Value Normal Range TR Vmax 3 m/sec - TR peak gradient 36 mmHg - RAP 3 mmHg - RVSP 39 mmHg - IVC diameter 1.9 cm - Name Value Normal Range PV Vmax 1.1 m/sec - PV peak gradient 4 mmHg - MO end-diastolic Vmax 1.6 m/sec - PA end-diastolic [id number] mmHg -
--- NOTE | 2019-02-05 19:44 | PN ---
Subjective Date of Service: 02/05/19 Interval History: Awake, depressed mood, flat affect. non compliant with his medications ( suboxone) and tele. He continues to leave the floor for cigarette smoking outside. He declined psych consult Family History: Unchanged from Admission Objective Active Medications: Acetaminophen (Tylenol Tab*) 650 mg PO Q4H PRN PRN Reason: FEVER/PAIN Last Admin: 02/05/19 14:49 Dose: 650 mg Docusate Sodium (Colace Cap*) 100 mg PO BID [facility] Last Admin: 02/05/19 09:02 Dose: Not Given Oxacillin Sodium 2 gm/ Sodium (Chloride) 100 mls @ 200 mls/hr IVPB Q4H [facility] Last Admin: 02/05/19 16:22 Dose: 200 mls/hr Magnesium Hydroxide (Milk Of Magnmeena Liq*) 30 ml PO Q4H PRN PRN Reason: CONSTIPATION Methadone HCl (Dolophine Tab*) 10 mg PO Q6H [facility] Last Admin: 02/05/19 13:10 Dose: Not Given Nicotine (Nicotine Patch 21 Mg/24 Hr*) 1 patch TRANSDERM DAILY [facility] Last Admin: 02/05/19 09:02 Dose: Not Given Pharmacy Profile Note (Nicotine Patch Removal Note*) 1 note PATCH OFF 2100 [facility] Last Admin: 02/04/19 21:29 Dose: Not Given Senna (Senokot Tab*) 1 tab PO BID [facility] Last Admin: 02/05/19 09:03 Dose: Not Given Vital Signs - 8 hr 02/05/19 15:16 Temperature 100.3 F Pulse Rate 94 Respiratory 20 Rate Blood Pressure 131/66 (mmHg) O2 Sat by Pulse 93 Oximetry Oxygen Devices in Use Now: None Appearance: Awake, alert. no distress. Flat affect Eyes: No Scleral Icterus Ears/Nose/Mouth/Throat: NL Teeth, Lips, Gums Neck: NL Appearance and Movements; NL JVP, Trachea Midline Respiratory: Symmetrical Chest Expansion and Respiratory Effort, Clear to Auscultation Cardiovascular: NL Sounds; No Murmurs; No JVD Abdominal: NL Sounds; No Tenderness; No Distention Result Diagrams: 02/04/19 05:55 02/04/19 05:55 Microbiology and Other Data: Microbiology 02/03/19 03:07 Aerobic Blood Culture - Preliminary Blood Venous Staphylococcus Aureus Anaerobic Blood Culture - Preliminary Staphylococcus Aureus 02/03/19 03:08 Aerobic Blood Culture - Preliminary Blood Venous Staphylococcus Aureus Anaerobic Blood Culture - Preliminary Staphylococcus Aureus Blood MRSA/MSSA (PCR) - Final Mrsa Negative S.aureus Positive 02/03/19 05:28 Urine Culture - Final Urine No Growth (<1,000 CFU/mL) Assess/Plan/Problems-Billing Assessment: Mr. Miles is a 28 yo M with a PMH of IVDA who was admitted on 02/03/19 with sepsis and concern for endocarditis. - Patient Problems (1) Bacteremia Current Visit: Yes Status: Acute Code(s): R78.81 - BACTEREMIA SNOMED Code( s): 0602447 Comment: - MSSA, on oxacillin day # 2 - Echo negative for vegetations. Will schedule for ALVARO in am - F/up final blood C&S x 2 on 02/05. (2) Intravenous drug abuse Current Visit: Yes Status: Acute Code(s): F19.10 - OTHER PSYCHOACTIVE SUBSTANCE ABUSE, UNCOMPLICATED SNOMED Code(s): 740671523 Comment: - No evidence of withdrawal, on methadone 10 mg Q6hr - Social work consult placed (3) DVT prophylaxis Current Visit: Yes Status: Acute Code(s): XZF3629 - SNOMED Code(s): 137478185 Comment: - SCDs
[2019-02-05] MEDS: Nicotine Patch Removal NOTE PATCH OFF SCH (21:01)
[2019-02-06] MEDS: Acetaminophen TAB* 325 MG PO PRN ×3 (00:04→19:44)
[2019-02-06] MEDS: Oxacillin(*) 2 GM in NS 0.9% 100 ML* 100 ML IVPB SCH ×6 (00:11→19:45)
[2019-02-06] MEDS: Methadone TAB* 10 MG PO SCH ×4 (00:11→16:18)
[2019-02-06] MEDS ORDERED: Ibuprofen TAB* 600 MG PO PRN (05:39)
[2019-02-06 06:14] LABS: Hematocrit 33 % (36-46); Hemoglobin 11.4 g/dL (14.0-18.0); Mean Corpuscular HGB Conc 34 g/dL (31-36); Mean Corpuscular Hemoglobin 30 pg (27-31); Mean Corpuscular Volume 88 fL (80-94); Platelet Count 277 10^3/uL (150-450); Red Blood Count 3.78 10^6 /uL (4.18-5.48); Red Cell Distribution Width 14 % (10.5-15); White Blood Count 11.1 10^3/uL (3.5-10.8)
[2019-02-06 06:30] LABS: BUN/Creatinine Ratio 10.6 (8-20); Calcium 8.4 mg/dL (8.6-10.3); EGFR African American 175.2 (>60); EGFR Non-African American 144.8 (>60); Magnesium 1.7 mg/dL (1.9-2.7); Phosphorus 4.1 mg/dL (2.5-5.0); Potassium 3.5 mmol/L (3.5-5.0)
[2019-02-06 07:25] LABS: ABS Basophils 0.1 10^3/ul (0-0.2); ABS Eosinophils 1.3 10^3/ul (0-0.6); ABS Lymphocytes 1.6 10^3/ul (1.0-4.8); ABS Monocytes 1.4 10^3/ul (0-0.8); ABS Neutrophils 6.8 10^3/ul (1.5-7.7); ABS Nucleated RBC 0 10^3/ul; Eosinophil % 12.1 %; Nucleated Red Blood Cells % 0
[2019-02-06] MEDS: Docusate CAP* 100 MG PO SCH ×2 (07:37→20:20)
[2019-02-06] MEDS: Senna TAB PO SCH ×2 (07:37→20:20)
[2019-02-06] MEDS: Nicotine PATCH 21 MG/24 HR* PATCH TRANSDERM SCH (08:31)
[2019-02-06] MEDS: Potassium Chlor TAB* 20 MEQ TAB.ER PO SCH (08:48)
[2019-02-06] MEDS: Magnesium Oxide TAB* 400 MG PO SCH ×2 (08:48→20:20)
--- NOTE | 2019-02-06 16:56 | PN ---
Subjective Date of Service: 02/06/19 Interval History: Awake, alert. no acute events. He was verbally inappropriate using the "F---" when I was talking with him. He was expressing his frustration that we are not treating his "F---" pain and methadone does not work and he would like morphine IV. Inquiring about getting a picc line, and questioning whether or not he will proceed with the ALVARO in am... I was able to redirect him and explained the importance to adhere to treatment and the importance of proceeding with the ALVARO. However, in regard to the pain, I will not change his regimen beside prn Tylenol, ibuprofen and methadone that was already in place before me caring for the patient. Family History: Unchanged from Admission Objective Active Medications: Acetaminophen (Tylenol Tab*) 650 mg PO Q4H PRN PRN Reason: FEVER/PAIN Last Admin: 02/06/19 05:37 Dose: 650 mg Docusate Sodium (Colace Cap*) 100 mg PO BID [facility] Last Admin: 02/06/19 07:37 Dose: Not Given Famotidine (Pepcid Iv*) 20 mg IV ONCE ONE Stop: 02/07/19 06:01 Oxacillin Sodium 2 gm/ Sodium (Chloride) 100 mls @ 200 mls/hr IVPB Q4H [facility] Last Admin: 02/06/19 16:12 Dose: 200 mls/hr Lactated Ringer's (Lactated Ringers 1000 Ml Bag*) 1,000 mls @ 125 mls/hr IV PER RATE [facility] Ibuprofen (Motrin Tab*) 600 mg PO Q8H PRN PRN Reason: PAIN Last Admin: 02/06/19 05:46 Dose: 600 mg Lidocaine/Sodium Bicarbonate (Buffered Lidocaine 1% Syrin*) 0.2 ml INTRADERM ONCE ONE Stop: 02/07/19 08:01 Magnesium Hydroxide (Milk Of Magnesia Liq*) 30 ml PO Q4H PRN PRN Reason: CONSTIPATION Magnesium Oxide (Magox 400 Tab*) 400 mg PO BID [facility] Last Admin: 02/06/19 08:48 Dose: Not Given Methadone HCl (Dolophine Tab*) 10 mg PO Q6H [facility] Last Admin: 02/06/19 16:18 Dose: Not Given Nicotine (Nicotine Patch 21 Mg/24 Hr*) 1 patch TRANSDERM DAILY [facility] Last Admin: 02/06/19 08:31 Dose: Not Given Pharmacy Profile Note (Nicotine Patch Removal Note*) 1 note PATCH OFF 2100 [facility] Last Admin: 02/05/19 21:01 Dose: Not Given Potassium Chloride (Klor Con Er Tab*) 20 meq PO DAILY [facility] Last Admin: 02/06/19 08:48 Dose: Not Given Senna (Senokot Tab*) 1 tab PO BID [facility] Last Admin: 02/06/19 07:37 Dose: Not Given Vital Signs - 8 hr 02/06/19 02/06/19 11:10 15:12 Temperature 98.4 F 98.2 F Pulse Rate 63 66 Respiratory 18 16 Rate Blood Pressure 130/65 132/71 (mmHg) O2 Sat by Pulse 98 98 Oximetry Oxygen Devices in Use Now: None Appearance: agitated, pretty upset today Eyes: No Scleral Icterus, - - EOMI Ears/Nose/Mouth/Throat: NL Teeth, Lips, Gums Result Diagrams: 02/06/19 05:38 02/06/19 05:38 Microbiology and Other Data: Microbiology 02/03/19 03:07 Aerobic Blood Culture - Preliminary Blood Venous Staphylococcus Aureus Anaerobic Blood Culture - Preliminary Staphylococcus Aureus 02/03/19 03:08 Aerobic Blood Culture - Preliminary Blood Venous Staphylococcus Aureus Anaerobic Blood Culture - Preliminary Staphylococcus Aureus Blood MRSA/MSSA (PCR) - Final Mrsa Negative S.aureus Positive 02/03/19 05:28 Urine Culture - Final Urine No Growth (<1,000 CFU/mL) Assess/Plan/Problems-Billing Assessment: Mr. Miles is a 28 yo M with a PMH of IVDA who was admitted on 02/03/19 with sepsis and concern for endocarditis. - Patient Problems (1) Bacteremia Current Visit: Yes Status: Acute Code(s): R78.81 - BACTEREMIA SNOMED Code( s): 4659869 Comment: - MSSA, on oxacillin day # 3 - Echo negative for vegetations. Will schedule for ALVARO in am with general anesthesia - repeat blood C&S x 2 on 02/05 one set still growing Staph aureus. Will follow up repeat BC - ID consult called. continue oxacillin (2) Intravenous drug abuse Current Visit: Yes Status: Acute Code(s): F19.10 - OTHER PSYCHOACTIVE SUBSTANCE ABUSE, UNCOMPLICATED SNOMED Code(s): 814985921 Comment: - No evidence of withdrawal, on methadone 10 mg Q6hr. It was already initiated - Social work consult placed (3) DVT prophylaxis Current Visit: Yes Status: Acute Code(s): [id number] - SNOMED Code(s): 045185056 Comment: - SCDs
[2019-02-06] MEDS: Nicotine Patch Removal NOTE PATCH OFF SCH (20:21)
[2019-02-07] MEDS: Methadone TAB* 10 MG PO SCH ×5 (00:11→16:52)
[2019-02-07] MEDS: Oxacillin(*) 2 GM in NS 0.9% 100 ML* 100 ML IVPB SCH ×6 (00:11→20:05)
[2019-02-07] MEDS ORDERED: Famotidine IV* 10 MG/ML 2 ML (20 mg) IV ONE (06:00)
[2019-02-07] MEDS ORDERED: Lactated Ringers 1000 ML Bag* 1,000 ML IV SCH (06:00)
[2019-02-07] MEDS ORDERED: Buffered Lidocaine 1% SYRIN* 1 ML/SYRINGE INTRADERM ONE (08:00)
[2019-02-07] MEDS: Nicotine PATCH 21 MG/24 HR* PATCH TRANSDERM SCH (08:02)
[2019-02-07] MEDS ORDERED: fentaNYL* 50 MCG/ML 2 ML VIAL (100 MCG VIAL) ONE ×2 (08:27→14:16)
[2019-02-07] MEDS ORDERED: KETAMINE HCL* 50 MG/ML 10 ML VIAL ONE ×2 (08:27→14:49)
[2019-02-07] MEDS ORDERED: Midazolam* 1 MG/ML 5 ML VIAL (5 MG) ONE ×2 (08:27→14:21)
[2019-02-07] MEDS ORDERED: DiMENhydriNATE IV* 50 MG/ML VIAL IV PUSH PRN (09:05)
[2019-02-07] MEDS ORDERED: Acetaminophen IV 1GM/100ML * 1,000 MG/100 ML VIAL IVPB ONE (09:05)
[2019-02-07] MEDS ORDERED: Propofol* 10 MG/ML 20 ML BTL ONE (11:42)
[2019-02-07] MEDS: Docusate CAP* 100 MG PO SCH ×2 (13:24→22:03)
[2019-02-07] MEDS: Potassium Chlor TAB* 20 MEQ TAB.ER PO SCH (13:24)
[2019-02-07] MEDS: Senna TAB PO SCH ×2 (13:24→22:03)
[2019-02-07] MEDS: Magnesium Oxide TAB* 400 MG PO SCH ×2 (13:24→22:03)
--- NOTE | 2019-02-07 14:50 | PN ---
Progress Note - Progress Note Date of Service: 02/07/19 Note: GI EGD Brief Note LA-A erosive esophagitis Gastritis No stricture or trachealization to esophagus Rec: OK for ALVARO PPI daily for 3 months repeat EGD in 3 months time with BX H. Pylori Stool Ag test, tx if + Outpatient follow in a few months if not using IV drugs for possible Hep C treatment Benson Singh Do 02/07/19 1453
[2019-02-07] MEDS ORDERED: Midazolam* 1 MG/ML 2 ML VIAL (2 MG) ONE (14:58)
--- NOTE | 2019-02-07 15:22 | CONS ---
CC: Dr. Montague; Dr. De Leon * CONSULTATION REPORT: DATE OF CONSULT: 02/07/19 REASON FOR CONSULT: Dysphagia. HISTORY OF PRESENT ILLNESS: This is a 28-year-old male with history of heroin abuse, who presented to the [facility] ER on 02/03/19 with pain all over. The patient was ultimately found to be bacteremic with concern for endocarditis. He is being prepared to have a ALVARO today; however, he shared that he occasionally had some difficulty swallowing with the attending husker operator, Dr. Montague, today. He states that once in a while the back of his throat feels a little sore, but he said it has been worse since he had a tooth that has been bothering him lately. States liquid and solids seemed to go down okay. He does have occasional heartburn. No abdominal pain, but he states pain all over at times. He does have a history of hepatitis C. He has never been treated before. Last antibody was 04/11/18 that was positive with a positive viral load. He states he last used about 2 weeks ago. Denies any black or blood in the stool. No diarrhea, constipation on a regular basis. The remainder of the 14-point review of systems is grossly negative. PAST MEDICAL HISTORY: Polysubstance abuse including active IV heroin use, hepatitis C. PAST SURGICAL HISTORY: History of ORIF of the left humerus. HOME MEDICATIONS: It appears he was recently treated with clindamycin at the rescue [facility] and then has been using Suboxone, but also has gotten gabapentin off the street and previously IV heroin abuse. ALLERGIES: No known drug allergies. FAMILY HISTORY: No family history of colon cancer or inflammatory bowel disease or GI disease. SOCIAL HISTORY: Polysubstance abuse. Does use marijuana, tobacco, and IV drugs. REVIEW OF SYSTEMS: The remainder of the 14-point review of systems is grossly negative. PHYSICAL EXAM: Vital Signs: Blood pressure 144/80, pulse is 63, temperature is 98.6, T-max was 98.6. In general, alert and oriented x3, in no acute distress. HEENT: Atraumatic, normocephalic. Pupils equal, round, reactive to light. Conjunctivae are pink. Sclerae are anicteric. Neck is supple. Cardiovascular: Regular rate and rhythm. S1, S2. Pulmonary: Clear to auscultation bilaterally. Abdomen: Soft, nontender, nondistended. Bowel sounds positive. Extremities: No clubbing, no cyanosis, no edema. Scattered ecchymoses and evidence of injection sites in the AC fossa. LABORATORY DATA: Hemoglobin is 11.4, platelet count is 277, ESR is 59. INR 1.05. Creatinine 0.66. Bilirubin 2.3, direct is 1.6. Magnesium 1.4. ALT is 81 , AST is 34. CRP is 130. Again, previous hepatitis C antibody was positive back in 2018 with a positive viral load. ASSESSMENT AND PLAN: A 28-year-old male with dysphagia. 1. Dysphagia. We will plan on upper endoscopy to evaluate prior to ALVARO for safety. Discussed the risks, benefits, and alternatives of the procedure and he would like to proceed. 2. Polysubstance abuse with bacteremia. Per primary service. 3. Positive hepatitis C antibody with viral load in 2018. Needs to follow up with GI as an outpatient to consider treatment, but would need to sober for 6 months to consider treatment as to not increase the risk of resistance with his hepatitis C. [id number]/[facility] #: [id number] CLARITA
[2019-02-07] MEDS: Pantoprazole TAB * 40 MG TAB PO SCH (16:52)
--- NOTE | 2019-02-07 19:04 | PN ---
Subjective Date of Service: 02/07/19 Interval History: Patient seen today post EGD and ALVARO. ALVARO negative for vegetations, EGD gastritis. otherwise no acute events. He was in a very good mood post operatively. Will start him on PPI and will discuss with ID regarding the duration of IV abx. Family History: Unchanged from Admission Objective Active Medications: Acetaminophen (Tylenol Tab*) 650 mg PO Q4H PRN PRN Reason: FEVER/PAIN Last Admin: 02/06/19 19:44 Dose: 650 mg Docusate Sodium (Colace Cap*) 100 mg PO BID [facility] Last Admin: 02/07/19 13:24 Dose: Not Given Oxacillin Sodium 2 gm/ Sodium (Chloride) 100 mls @ 200 mls/hr IVPB Q4H [facility] Last Admin: 02/07/19 16:52 Dose: 200 mls/hr Lactated Ringer's (Lactated Ringers 1000 Ml Bag*) 1,000 mls @ 125 mls/hr IV PER RATE [facility] Last Admin: 02/07/19 16:52 Dose: 125 mls/hr Magnesium Hydroxide (Milk Of Magnmeena Liq*) 30 ml PO Q4H PRN PRN Reason: CONSTIPATION Magnesium Oxide (Magox 400 Tab*) 400 mg PO BID [facility] Last Admin: 02/07/19 13:24 Dose: Not Given Methadone HCl (Dolophine Tab*) 10 mg PO Q6H [facility] Last Admin: 02/07/19 16:52 Dose: Not Given Nicotine (Nicotine Patch 21 Mg/24 Hr*) 1 patch TRANSDERM DAILY [facility] Last Admin: 02/07/19 08:02 Dose: Not Given Pantoprazole Sodium (Protonix Tab*) 40 mg PO DAILY [facility] Last Admin: 02/07/19 16:52 Dose: 40 mg Pharmacy Profile Note (Nicotine Patch Removal Note*) 1 note PATCH OFF 2100 [facility] Last Admin: 02/06/19 20:21 Dose: Not Given Potassium Chloride (Klor Con Er Tab*) 20 meq PO DAILY [facility] Last Admin: 02/07/19 13:24 Dose: Not Given Senna (Senokot Tab*) 1 tab PO BID [facility] Last Admin: 02/07/19 13:24 Dose: Not Given Vital Signs - 8 hr 02/07/19 02/07/19 02/07/19 15:25 15:27 15:30 Temperature 98.6 F Pulse Rate 63 65 60 Respiratory 26 28 23 Rate Blood Pressure 144/92 136/88 (mmHg) O2 Sat by Pulse 99 98 99 Oximetry 02/07/19 02/07/19 02/07/19 15:45 15:53 16:00 Temperature Pulse Rate 62 63 Respiratory 23 16 Rate Blood Pressure 139/91 145/91 (mmHg) O2 Sat by Pulse 96 99 Oximetry 02/07/19 02/07/19 16:11 16:16 Temperature 97.9 F Pulse Rate Respiratory 16 18 Rate Blood Pressure 133/74 (mmHg) O2 Sat by Pulse 100 Oximetry Oxygen Devices in Use Now: None Appearance: Awake, alert. no distress. taking po well Eyes: No Scleral Icterus Ears/Nose/Mouth/Throat: NL Teeth, Lips, Gums, Clear Oropharnyx Neck: NL Appearance and Movements; NL JVP, Trachea Midline Respiratory: Symmetrical Chest Expansion and Respiratory Effort, Clear to Auscultation Cardiovascular: NL Sounds; No Murmurs; No JVD, RRR Abdominal: NL Sounds; No Tenderness; No Distention Extremities: No Edema Skin: No Rash or Ulcers Neurological: Alert and Oriented x 3 Result Diagrams: 02/06/19 05:38 02/06/19 05:38 Microbiology and Other Data: Microbiology 02/03/19 03:07 Aerobic Blood Culture - Preliminary Blood Venous Staphylococcus Aureus Anaerobic Blood Culture - Preliminary Staphylococcus Aureus 02/03/19 03:08 Aerobic Blood Culture - Preliminary Blood Venous Staphylococcus Aureus Anaerobic Blood Culture - Preliminary Staphylococcus Aureus Blood MRSA/MSSA (PCR) - Final Mrsa Negative S.aureus Positive 02/03/19 05:28 Urine Culture - Final Urine No Growth (<1,000 CFU/mL) Assess/Plan/Problems-Billing Assessment: Mr. Miles is a 28 yo M with a PMH of IVDA who was admitted on 02/03/19 with sepsis and concern for endocarditis. - Patient Problems (1) Bacteremia Current Visit: Yes Status: Acute Code(s): R78.81 - BACTEREMIA SNOMED Code( s): 0429711 Comment: - MSSA, on oxacillin day # 4 - Echo negative for vegetations. ALVARO 02/07/19 negative for vegetations. - Repeat blood C&S x 2 on 02/05 still growing Staph aureus. I will check with ID if we should repeat versus proceeding with WBC tag scan. Given his hemoptysis before the EGD/ALVARO will obtain CT of chest. however, i will defer that until I revisit with ID in the event we need to scan his abdomen. - ID consult called. continue oxacillin (2) Intravenous drug abuse Current Visit: Yes Status: Acute Code(s): F19.10 - OTHER PSYCHOACTIVE SUBSTANCE ABUSE, UNCOMPLICATED SNOMED Code(s): 508900153 Comment: - No evidence of withdrawal, on methadone 10 mg Q6hr. It was already initiated - Social work consult placed - Psych consult called (3) DVT prophylaxis Current Visit: Yes Status: Acute Code(s): [id number] - SNOMED Code(s): 318174938 Comment: - SCDs
--- NOTE | 2019-02-07 22:03 | CONS ---
CONSULTATION REPORT: DATE OF CONSULT: 02/07/19 PRIMARY CARE PROVIDER: None. PHYSICIAN REQUESTING CONSULTATION: Dr. Jorge De Leon. CONSULTING SERVICE: Infectious Disease. ATTENDING PROVIDER: Dr. Juan Manuel Huang * (dictated by Antwon Herman NP). REASON FOR CONSULT: Methicillin-sensitive Staph aureus bacteremia. IMPRESSION: 1. Methicillin-sensitive Staphylococcus aureus bacteremia. He does have hardware in his left humerus, the arm is benign and there is no swelling or tenderness with palpation. There is a low suspicion for this being his source. He has no urinary symptoms, and has a negative urinalysis. MRI without signs of an epidural abscess. I suspect the source is secondary to his IV drug use history. This also likely represents probable tricuspid valve endocarditis, although there is no vegetation seen on the transthoracic echocardiogram. 2. Elevated liver function tests in the setting of history of hepatitis C. He states he has not had treatments for his hepatitis C in the past. 3. Polysubstance abuse. 4. Tobacco abuse. PLAN/RECOMMENDATIONS: Recommend continuing oxacillin for now. I do not feel that he necessarily needs to have a transesophageal echocardiogram at this time. We could consider just treating him for 6 weeks with IV antibiotics, but if he does undergo a transesophageal echocardiogram, we will be able to better visualize the valves to determine if he does in fact have endocarditis. This would help to narrow the amount of time that he will require IV antibiotics. Once he is no longer using injectable drugs, he could follow with us for treatment of his hepatitis C. HISTORY OF PRESENT ILLNESS: Mr. Miles is a 28-year-old male with past medical history significant for hepatitis C, polysubstance abuse, tobacco abuse who initially presented to the hospital on 01/30/19 with complaints of pain all over. He was found to be febrile and was discharged from the emergency room, but after 24 hours his blood cultures returned positive and the emergency room had been attempting to contact the patient to have him come back to the emergency room and they were unable to get a hold of him. He re-presented to the emergency room on 02/03/19 due to unbearable pain all over. He reports going to [place] for methadone and opioid addiction rehab, but signed himself out as he did not like the environment. He moved into the [facility] and was injecting heroin and using methamphetamines. He also reports diluting buccal film Suboxone and diluting with water and injecting that. He reports fevers off and on for several days and pain for weeks. The pain has been more severe recently. He also reports taking clindamycin given to him by a friend at the rescue mission. He last injected Suboxone 24 hours prior to his admission to the hospital. During his hospitalization, he has had repeat blood cultures twice, blood cultures from 02/03/19 showing 4/4 positive blood cultures for Staph aureus and repeat cultures on 02/05/19 showing 3/4 blood cultures positive for Staph aureus. He has had a negative urine culture. He had a cervical spine MRI on , showing "a normal MRI of the cervical spine aside from nonspecific straightening of the normal cervical lordosis. There was no abnormal enhancement at the intervertebral disks or elsewhere to indicate acute focal infection". He had a transthoracic echocardiogram on 02/04/19 showing no signs of vegetation on any of his valves. He is being treated with oxacillin intravenous since admission. Tunde states he has had fevers and chills for 1 week. He also reports fatigue, and shortness of breath since his hospital admission. He reports the shortness of breath is worse when lying down. He reports joint pain with all of his joints hurting, he is unable to describe this pain or unable to discuss what makes his pain worse or makes it better. He denies any rashes, diarrhea. He denies any urinary symptoms. He denies any recent travel. He does report having a stuffy nose since his hospitalization. PAST MEDICAL HISTORY: 1. Hepatitis C. 2. Polysubstance use disorder. 3. Tobacco use disorder. PAST SURGICAL HISTORY: Status post ORIF of the left humerus. HOME MEDICATIONS: He denies home medication use. ALLERGIES: No known drug allergies. FAMILY HISTORY: He denies family history of recurrent or resistant infections. He denies family history of coronary artery disease, diabetes, or cancer. SOCIAL HISTORY: He denies alcohol use. He reports smoking a few cigarettes a day for the last 20 years. He reports polysubstance abuse, most recently using methamphetamines and heroin. REVIEW OF SYSTEMS: I performed a 10-point review of systems. All the pertinent positives and negatives are mentioned in the history of present illness. The remaining review of systems are negative. PHYSICAL EXAM: Vital Signs: Temperature 98.6, heart rate 63, respiratory rate 22, O2 sat 95% on room air, blood pressure 144/80. General Appearance: The patient is sedated, lying in bed, in no acute distress. Head: Normocephalic, atraumatic. ENT: Pupils are equal and reactive to light. Extraocular movements are intact. No conjunctival hemorrhage. Mucous membranes are moist. Neck is supple. There is no lymphadenopathy. Neurological: Cranial nerves II through XII are grossly intact. He is drowsy and oriented. Cardiovascular: Regular rate and rhythm. S1, S2 present. No murmurs, rubs, or gallops heard. Respiratory: No accessory muscle use. The lungs are clear to auscultation bilateral. Abdomen: Bowel sounds are present. The patient was not cooperative with an abdominal exam. What I was able to examine was soft, nontender, nondistended, although he did state that his abdomen was tender and asked to not be touched. He had no guarding. Extremities: No lower extremity edema. DP and PT pulses are 2+ and symmetric. Musculoskeletal: No clubbing or cyanosis noted. Exhibits equal strength in all extremities. He has full range of motion of wrists, elbows, limited in his shoulders, although he was not cooperative for a shoulder exam. Full range of motion in ankles, knees, and hips. He was not cooperative for mobility of his neck. There is no crepitus or swelling noted in these joints. Psychological: The patient is uncooperative. Skin: No rashes or abnormalities seen on the exposed skin. DIAGNOSTIC STUDIES/LAB DATA: Sodium 135, potassium 3.5, chloride 102, CO2 of 26 , BUN 7, creatinine 0.66, glucose 101. White blood cell count 11.1, hemoglobin 11.4, hematocrit 33, platelet count 277. HIV negative. CRP 130.56. ALT 34, AST 81. Blood cultures as previously reported above. Please see the impression and recommendations outlined above. Thank you for asking us to see Mr. Miles in consultation. TIME SPENT: Time for this consultation was approximately 30 minutes, greater than half of that was spent with the patient discussing past medical history, medications, the events leading to his arrival, and performing a physical examination. The plan has been discussed with my attending, Dr. Juan Manuel Huang, who agrees with the plan of care. Reviewed by ANTWON HERMAN HAND STAMPER-C 02/08/19 1735 [id number]/[facility] #: [id number] Seen, examined, discussed with Guerita Herman NP, I agree with her full note. Impression/Recommendations: 1. MSSA bacteremia with tricuspid regurgitation on trans thoracic echo; tricuspid valve endocarditis high on the differential, no ongoing musculoskeletal symptoms or prosthetic material present. No neurologic deficits on exam. ALVARO pending, continue oxacillin, recheck blood cultures. No PICC at this time. 2. IVDU in brief remission 3. HCV Ab positive MTDD
[2019-02-07] MEDS: Nicotine Patch Removal NOTE PATCH OFF SCH (22:04)
--- NOTE | 2019-02-07 22:29 | PRO ---
CC: Dr. Suman Montague; Dr. Margret Garcia * ESOPHAGOGASTRODUODENOSCOPY REPORT: DATE OF PROCEDURE: 02/07/19 - ROOM #447 INDICATION FOR PROCEDURE: Dysphagia. PROCEDURE PERFORMED: Complete esophagogastroduodenoscopy. MEDICATIONS GIVEN: Please see Anesthesia record. DESCRIPTION OF PROCEDURE: After the EGD procedure including the risks, benefits , and alternatives with the risks not limited to perforation, surgery, missed lesions, and/or were explained to the patient, written informed consent was obtained, IV medication was given and a bite-block was placed between the teeth. The adult Olympus gastroscope was then inserted into the patient's oropharynx, into the tubular esophagus. At the distal tubular esophagus, there was LA-A erosive esophagitis. GE junction was at 40 cm. There was no stricturing, narrowing, or linear tracheal elevation to the esophagus. The scope was then advanced through the lower esophageal sphincter into the stomach , mild antral gastritis was noted, which did extend slightly up into the body. On retroflexion, no significant hiatal hernia was appreciated. No gastric varices were appreciated. The scope was then advanced through a widely patent pylorus, into the duodenal bulb, C-loop, and distal duodenum. These were normal in appearance. The scope was then removed from the patient. He tolerated the procedure well. He returned to the recovery room in stable condition. A ALVARO was done after the EGD, please see a separate procedure report from Cardiology. IMPRESSION: 1. Complete esophagogastroduodenoscopy. 2. LA-A erosive esophagitis. 3. Gastritis. 4. Normal duodenum. 5. No stricturing or narrowing to the esophagus. RECOMMENDATIONS: There is no contraindication to do a ALVARO. This will be followed upper endoscopy today. In terms of his erosive esophagus and gastritis , I recommend daily PPI therapy for 3 months' time and then I would like to reassess with an EGD with biopsies at that point. In addition recommend stool H. pylori antigen test, which I will order here. [id number]/[facility] #: [id number] [facility]
[2019-02-08] MEDS: Methadone TAB* 10 MG PO SCH ×5 (00:03→16:57)
[2019-02-08] MEDS: Oxacillin(*) 2 GM in NS 0.9% 100 ML* 100 ML IVPB SCH ×6 (00:04→21:36)
[2019-02-08] MEDS: Nicotine PATCH 21 MG/24 HR* PATCH TRANSDERM SCH (08:02)
[2019-02-08] MEDS: Docusate CAP* 100 MG PO SCH ×2 (08:02→21:37)
[2019-02-08] MEDS: Senna TAB PO SCH ×2 (08:03→21:39)
[2019-02-08] MEDS: Magnesium Oxide TAB* 400 MG PO SCH ×2 (08:08→21:38)
[2019-02-08] MEDS: Potassium Chlor TAB* 20 MEQ TAB.ER PO SCH (08:09)
[2019-02-08] MEDS: Pantoprazole TAB * 40 MG TAB PO SCH (08:09)
--- NOTE | 2019-02-08 12:16 | PN ---
Progress Note - Progress Note Date of Service: 02/08/19 SOAP: Subjective: CC: bacteremia HPI: 28 year old man with IVDU and MSSA bacteremia; had neck pain which is improved. All joints are somewhat painful, none worse than other and none with swelling. No fever, rash, or diarrhea. Objective: Vital Signs Temp 36.9 C 02/08/19 07:52 Pulse 69 02/08/19 07:52 Resp 16 02/08/19 07:52 BP 136/76 02/08/19 07:52 Pulse Ox 98 02/08/19 07:52 Intake & Output 02/07/19 02/08/19 02/08/19 18:59 06:59 18:59 Intake Total 890 765 230 Output Total 0 Balance 890 765 230 Weight 186 lb 1.122 oz Intake: IV Fluids 650 75 LR 650 NS (0.9%) 0 75 IVPB 330 110 oxacillin 330 110 Oral 240 360 120 Output: Urine 0 Other: Estimated Void Medium # Bowel Movements 0 # Voids 2 Gen:awake, no distress HEENT: no thrush or subconj hemorrhage Heart:RRR no murmur Neck:supple, no mass Lungs:clear to auscultation Abd:+BS NTND soft Skin: no rash MSK: no spine tenderness or joint synovitis Laboratory Results - last 24 hr 02/08/19 10:15 C-Reactive Protein 17.93 H Microbiology 02/05/19 09:20 Aerobic Blood Culture - Preliminary Blood Venous No Growth Day 3 Anaerobic Blood Culture - Final Staphylococcus Aureus 02/05/19 09:23 Aerobic Blood Culture - Final Blood Venous Staphylococcus Aureus Anaerobic Blood Culture - Final Staphylococcus Aureus Blood MRSA/MSSA (PCR) - Final Mrsa Negative S.aureus Positive Assessment: 1. MSSA bacteremia, persistent, ALVARO no vegetation. TV endocarditis still in the differential, no other MSK symptoms and Left humerus fixation which is asymptomatic. 2. IVDU in brief remission 3. elevated CRP, improving Plan: 1. continue oxacillin 2 gm IV Q4hrs, recheck BC ordered, no picc, try peripheral as long as possible. Duration of antibiotics pending clearance of cultures . Discussed with Dr Mcadams
--- NOTE | 2019-02-08 15:37 | PN ---
Subjective Date of Service: 02/08/19 Interval History: Patient seen today, complaining of increase pain, refusing most of his methadone. previously asked me for morphine for which I did approve. S/o EGD and ALVARO on 02/08/19 negative for Vegetations. Blood cultures 48 hrs however remains positive Past Medical History: Unchanged from Admission Objective Active Medications: Acetaminophen (Tylenol Tab*) 650 mg PO Q4H PRN PRN Reason: FEVER/PAIN Last Admin: 02/06/19 19:44 Dose: 650 mg Docusate Sodium (Colace Cap*) 100 mg PO BID [facility] Last Admin: 02/08/19 08:02 Dose: Not Given Oxacillin Sodium 2 gm/ Sodium (Chloride) 100 mls @ 200 mls/hr IVPB Q4H [facility] Last Admin: 02/08/19 12:47 Dose: 200 mls/hr Lactated Ringer's (Lactated Ringers 1000 Ml Bag*) 1,000 mls @ 125 mls/hr IV PER RATE [facility] Last Admin: 02/07/19 16:52 Dose: 125 mls/hr Magnesium Hydroxide (Milk Of Magnesia Liq*) 30 ml PO Q4H PRN PRN Reason: CONSTIPATION Magnesium Oxide (Magox 400 Tab*) 400 mg PO BID [facility] Last Admin: 02/08/19 08:08 Dose: Not Given Methadone HCl (Dolophine Tab*) 10 mg PO Q6H [facility] Last Admin: 02/08/19 12:55 Dose: 10 mg Nicotine (Nicotine Patch 21 Mg/24 Hr*) 1 patch TRANSDERM DAILY [facility] Last Admin: 02/08/19 08:02 Dose: Not Given Pantoprazole Sodium (Protonix Tab*) 40 mg PO DAILY [facility] Last Admin: 02/08/19 08:09 Dose: Not Given Pharmacy Profile Note (Nicotine Patch Removal Note*) 1 note PATCH OFF 2100 [facility] Last Admin: 02/07/19 22:04 Dose: Not Given Potassium Chloride (Klor Con Er Tab*) 20 meq PO DAILY [facility] Last Admin: 02/08/19 08:09 Dose: Not Given Senna (Senokot Tab*) 1 tab PO BID [facility] Last Admin: 02/08/19 08:03 Dose: Not Given Vital Signs - 8 hr 02/08/19 02/08/19 02/08/19 07:52 12:55 15:27 Temperature 98.5 F Pulse Rate 69 Respiratory 16 18 8 Rate Blood Pressure 136/76 (mmHg) O2 Sat by Pulse 98 Oximetry Oxygen Devices in Use Now: None Appearance: awake, alert. no acute distress Eyes: No Scleral Icterus Ears/Nose/Mouth/Throat: NL Teeth, Lips, Gums, Mucous Membranes Moist Respiratory: Symmetrical Chest Expansion and Respiratory Effort Cardiovascular: NL Sounds; No Murmurs; No JVD, RRR Abdominal: NL Sounds; No Tenderness; No Distention Result Diagrams: 02/06/19 05:38 02/06/19 05:38 Microbiology and Other Data: Microbiology 02/03/19 03:07 Aerobic Blood Culture - Preliminary Blood Venous Staphylococcus Aureus Anaerobic Blood Culture - Preliminary Staphylococcus Aureus 02/03/19 03:08 Aerobic Blood Culture - Preliminary Blood Venous Staphylococcus Aureus Anaerobic Blood Culture - Preliminary Staphylococcus Aureus Blood MRSA/MSSA (PCR) - Final Mrsa Negative S.aureus Positive 02/03/19 05:28 Urine Culture - Final Urine No Growth (<1,000 CFU/mL) Assess/Plan/Problems-Billing Assessment: Mr. Miles is a 28 yo M with a PMH of IVDA who was admitted on 02/03/19 with sepsis and concern for endocarditis. - Patient Problems (1) Bacteremia Current Visit: Yes Status: Acute Code(s): R78.81 - BACTEREMIA SNOMED Code( s): 9326539 Comment: - MSSA, on oxacillin day # 5 - Echo negative for vegetations. ALVARO 02/07/19 negative for vegetations. - Repeat blood C&S x 2 on 02/05 still growing Staph aureus. I did consult with ID if we should repeat versus proceeding with WBC tag scan. for now recommended to repeat BC in am. patient will needs to have Abx for 2 weeks from last blood cultures (2) Intravenous drug abuse Current Visit: Yes Status: Acute Code(s): F19.10 - OTHER PSYCHOACTIVE SUBSTANCE ABUSE, UNCOMPLICATED SNOMED Code(s): 821394673 Comment: - No evidence of withdrawal, on methadone 10 mg Q6hr. It was already initiated - Social work consult placed - Psych consult called - No opiate therapy other than the methadone - I added gabapentin to him as he is complaining of pain (3) DVT prophylaxis Current Visit: Yes Status: Acute Code(s): CUJ8981 - SNOMED Code(s): 608686262 Comment: - SCDs
--- NOTE | 2019-02-08 21:07 | CONS ---
CONSULTATION REPORT: DATE OF CONSULT: 02/08/19 ATTENDING PHYSICIAN: Dr. Jorge De Leon. CONSULTING PHYSICIAN: Dr. Eleuterio Lim. REASON FOR CONSULT: Depression and IV drug abuse. SUBJECTIVE HISTORY: Psychiatry is asked to see this 28-year-old single white male with a history of intravenous drug use who originally presented to the hospital on 01/30/19 with complaints of pain all over. At that point, he was afebrile. He was discharged from the emergency room but his cultures came back positive. Thereafter, he returned to the hospital with continued severe pain. Since admission, he has been treated with IV antibiotics for bacteremia, which is related to his intravenous drug use. The patient has presented as despondent at times and at other times threatening to leave against medical advice, and therefore, a Psychiatry consult was requested. When I meet with the patient, he does acknowledge that he has been depressed, mostly guilty with some lethargy, difficulty sleeping, lack of motivation. He states that he feels worthless because he has done "everything short of killing someone" to support his drug habit. He readily admits that he is alienated from friends and family alike. He is from [place], [place], which is in [facility]; however, he came to this area approximately 2 weeks ago in order to get a new start and he had been staying [facility]. In addition to heroin abuse, he also acknowledges smoking crack cocaine and methamphetamines whenever he has the money for them. At this time, he is acknowledging the need for inpatient substance abuse rehabilitation and I am aware that he signed some paperwork to send a referral to the [facility] inpatient drug and alcohol recovery program in [place], [place]. I did ask him whether he felt that antidepressant therapy might be helpful, but he declined this stating "it is just the drugs, when I get clean and sober I don't feel this way." PAST PSYCHIATRIC HISTORY: The patient indicates that during one of his rehabilitation stints, someone prescribed an antidepressant but when he was discharged, his insurance would not pay for it at the pharmacy. Other than that , he denies being on any psychiatric medications, has never received counseling or psychiatric admission. He denies being a victim of abuse or neglect, denies any history of violence towards others, and he denies any history of traumatic brain injury. SUBSTANCE ABUSE HISTORY: Quite extensive. The patient states that he has been abusing heroin and other opioids for close to 10 years. He also abuses methamphetamines and cocaine and smokes cannabis intermittently. He has never had a problem with alcohol. He does smoke between half and a full-pack of cigarettes per day. PAST MEDICAL HISTORY: Significant for bacteremia, for which he is receiving inpatient IV antibiotics. MEDICATIONS: He is receivin. Gabapentin. 2. Methadone. 3. Colace. 4. Magnesium oxide. 5. Pantoprazole. 6. Potassium. 7. Senokot. ALLERGIES: He has no known drug allergies. FAMILY HISTORY: The patient denies any history of substance abuse, mental health problems, or suicidal behavior in his family. SOCIAL HISTORY: The patient was born and raised in [place], [place]. He is the 8th out of 12 total children to an intact family. His mother and father are still together. The patient graduated at [employer] 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 Currently, he is homeless, having just moved to the [facility] for a fresh start. He has been staying at the [employer] [facility]. He never went to college. He has no history of service. The patient states that he has had extensive criminal interventions due to drug-related behavior. He has had several stints in both the pending sale to [facility] and state lockups. He does endorse a spiritual of the [employer] and he is interested in a ell tutor's consult. He is single currently, never , has no children. He is not sexually active and has no history of sexually transmitted diseases. MENTAL STATUS EXAM: The patient is a young white male who is somewhat undernourished, lying in bed, looking up making good eye contact. He seems to be fairly well groomed, dressed in a patient gown. He is easy to establish a rapport with. Speech has a normal rate, tone, and volume. Mood appears to be depressed with constricted affect. Thought process is linear and goal directed. Thought content is significant for his desire to get into a rehab after his medical treatment is complete. He is denying suicidal or homicidal ideations. He denies auditory or visual hallucinations. Insight and judgment are fair given his willingness to receive substance abuse recovery services. Cognitively, he is awake and alert with what would appear to be an average intellect. DIAGNOSES: Ambridge I: Opioid-induced mood disorder, opioid use disorder, amphetamine use disorder, and cocaine use disorder. Ambridge II: Deferred. IMPRESSION: The patient is a 28-year-old single, never , homeless white male who just moved to the [facility] from [place], [place], who was subsequently admitted to the hospitalist service due to severe bacteremia secondary to IV drug abuse. The patient has a drug-induced mood disorder at this time; however, he is declining the use of antidepressant therapy stating that clean sober living is what he needs. He is agreeable with a referral to the [facility] inpatient rehab and Psychiatry is very much in support of this. Recommendations to primary team: We do not recommend psychiatric medication at the time and he does not warrant BSU admission. I do think he would benefit from speaking with the ell tutor service and I have left a message with Reverend aNresh Randolph and also placed ell tutor consult. In addition, he is complaining bitterly of lack of taste to his food and for this reason I have added a supplement of zinc sulfate 220 mg daily. Psychiatry is signing off; however, we can be reconsulted in the event of any significant changes in the patient's presentation. Thank you for the consult. [id number]/[facility] #: [id number] CL[place]
[2019-02-08] MEDS: Gabapentin CAP(*) 300 MG PO SCH (21:37)
[2019-02-08] MEDS: Nicotine Patch Removal NOTE PATCH OFF SCH (21:38)
[2019-02-09] MEDS: Methadone TAB* 10 MG PO SCH ×5 (00:49→17:51)
[2019-02-09] MEDS: Oxacillin(*) 2 GM in NS 0.9% 100 ML* 100 ML IVPB SCH ×6 (01:03→20:16)
[2019-02-09 06:12] LABS: Hematocrit 40 % (36-46); Hemoglobin 13.4 g/dL (14.0-18.0); Mean Corpuscular HGB Conc 34 g/dL (31-36); Mean Corpuscular Hemoglobin 30 pg (27-31); Mean Corpuscular Volume 89 fL (80-94); Mean Platelet Volume 6.8 fL (7.4-10.4); Platelet Count 447 10^3/uL (150-450); Red Blood Count 4.44 10^6 /uL (4.18-5.48); Red Cell Distribution Width 14 % (10.5-15); White Blood Count 14.6 10^3/uL (3.5-10.8)
[2019-02-09 06:20] LABS: ABS Basophils 0.1 10^3/ul (0-0.2); ABS Eosinophils 1.4 10^3/ul (0-0.6); ABS Lymphocytes 2.3 10^3/ul (1.0-4.8); ABS Monocytes 1.2 10^3/ul (0-0.8); ABS Neutrophils 9.5 10^3/ul (1.5-7.7); ABS Nucleated RBC 0 10^3/ul
[2019-02-09 06:36] LABS: BUN/Creatinine Ratio 10.4 (8-20); Calcium 8.9 mg/dL (8.6-10.3); EGFR African American 146.6 (>60); EGFR Non-African American 121.2 (>60); Potassium 3.8 mmol/L (3.5-5.0)
[2019-02-09 07:03] LABS: Eosinophil % 9.6 %; Lymphocyte % 15.7 %; Nucleated Red Blood Cells % 0
[2019-02-09 07:45] LABS: Magnesium 2.1 mg/dL (1.9-2.7)
[2019-02-09] MEDS: Zinc Sulfate CAP* 220 MG PO SCH (08:41)
[2019-02-09] MEDS: Potassium Chlor TAB* 20 MEQ TAB.ER PO SCH (08:42)
[2019-02-09] MEDS: Docusate CAP* 100 MG PO SCH ×2 (08:42→21:27)
[2019-02-09] MEDS: Magnesium Oxide TAB* 400 MG PO SCH ×2 (08:42→21:27)
[2019-02-09] MEDS: Senna TAB PO SCH ×2 (08:42→21:27)
[2019-02-09] MEDS: Gabapentin CAP(*) 300 MG PO SCH ×3 (08:42→21:27)
[2019-02-09] MEDS: Pantoprazole TAB * 40 MG TAB PO SCH (08:42)
[2019-02-09] MEDS: Nicotine PATCH 21 MG/24 HR* PATCH TRANSDERM SCH (08:42)
[2019-02-09 08:56] LABS: Erythrocyte Sed Rate 83 mm/Hr (0-14)
[2019-02-09 11:32] VITALS: BP 147/71
[2019-02-09] MEDS ORDERED: Nicotine Inhaler* 10 MG AMP INH PRN (11:50)
[2019-02-09] MEDS ORDERED: Mouth Piece, Nicotine* 1 EACH CARTRIDGE ONE (12:00)
--- NOTE | 2019-02-09 16:27 | PN ---
Subjective Date of Service: 02/09/19 Interval History: Patient seen awake, he was asking for nicotine replacement therapy, and was leaving the floor without supervision. Nursing staff agreed to take him outside supervised and was educated by me and staff not to leave the hospital unsupervised. I started him on nicotine inhaler. He was asking about suboxone treatment, I informed him that I can initiate treatment and he will need to be in treatment program that will initiate treatment and place him in a maintenance program Past Medical History: Unchanged from Admission Objective Active Medications: Acetaminophen (Tylenol Tab*) 650 mg PO Q4H PRN PRN Reason: FEVER/PAIN Last Admin: 02/06/19 19:44 Dose: 650 mg Docusate Sodium (Colace Cap*) 100 mg PO BID [facility] Last Admin: 02/09/19 08:42 Dose: Not Given Gabapentin (Neurontin Cap(*)) 300 mg PO TID [facility] Last Admin: 02/09/19 12:07 Dose: Not Given Oxacillin Sodium 2 gm/ Sodium (Chloride) 100 mls @ 200 mls/hr IVPB Q4H [facility] Last Admin: 02/09/19 16:12 Dose: 200 mls/hr Lactated Ringer's (Lactated Ringers 1000 Ml Bag*) 1,000 mls @ 125 mls/hr IV PER RATE [facility] Last Admin: 02/07/19 16:52 Dose: 125 mls/hr Magnesium Hydroxide (Milk Of Magnesia Liq*) 30 ml PO Q4H PRN PRN Reason: CONSTIPATION Magnesium Oxide (Magox 400 Tab*) 400 mg PO BID [facility] Last Admin: 02/09/19 08:42 Dose: Not Given Methadone HCl (Dolophine Tab*) 10 mg PO Q6H [facility] Last Admin: 02/09/19 11:42 Dose: Not Given Nicotine (Nicotine Patch 21 Mg/24 Hr*) 1 patch TRANSDERM DAILY [facility] Last Admin: 02/09/19 08:42 Dose: Not Given Nicotine (Nicotine Inhaler*) 10 mg INH Q2H PRN PRN Reason: CRAVING Last Admin: 02/09/19 12:04 Dose: 10 mg Pantoprazole Sodium (Protonix Tab*) 40 mg PO DAILY [facility] Last Admin: 02/09/19 08:42 Dose: Not Given Pharmacy Profile Note (Nicotine Patch Removal Note*) 1 note PATCH OFF 2100 [facility] Last Admin: 02/08/19 21:38 Dose: Not Given Potassium Chloride (Klor Con Er Tab*) 20 meq PO DAILY [facility] Last Admin: 02/09/19 08:42 Dose: Not Given Senna (Senokot Tab*) 1 tab PO BID [facility] Last Admin: 02/09/19 08:42 Dose: Not Given Zinc Sulfate (Zinc-220 Cap*) 220 mg PO DAILY [facility] Last Admin: 02/09/19 08:41 Dose: 220 mg Vital Signs - 8 hr 02/09/19 11:03 Temperature 97.7 F Pulse Rate 87 Respiratory 20 Rate Blood Pressure 147/71 (mmHg) O2 Sat by Pulse 100 Oximetry Oxygen Devices in Use Now: None Appearance: Awake, alert no acute distress Eyes: No Scleral Icterus, - - EOMI Ears/Nose/Mouth/Throat: NL Teeth, Lips, Gums, Mucous Membranes Moist Neck: NL Appearance and Movements; NL JVP, Trachea Midline Respiratory: Symmetrical Chest Expansion and Respiratory Effort, Clear to Auscultation Cardiovascular: NL Sounds; No Murmurs; No JVD, - - no murmur appreciated Abdominal: NL Sounds; No Tenderness; No Distention Neurological: Alert and Oriented x 3 Result Diagrams: 02/09/19 05:47 02/09/19 05:47 Microbiology and Other Data: Microbiology 02/03/19 03:07 Aerobic Blood Culture - Preliminary Blood Venous Staphylococcus Aureus Anaerobic Blood Culture - Preliminary Staphylococcus Aureus 02/03/19 03:08 Aerobic Blood Culture - Preliminary Blood Venous Staphylococcus Aureus Anaerobic Blood Culture - Preliminary Staphylococcus Aureus Blood MRSA/MSSA (PCR) - Final Mrsa Negative S.aureus Positive 02/03/19 05:28 Urine Culture - Final Urine No Growth (<1,000 CFU/mL) Assess/Plan/Problems-Billing Assessment: Mr. Miles is a 28 yo M with a PMH of IVDA who was admitted on 02/03/19 with sepsis and concern for endocarditis. - Patient Problems (1) Bacteremia Current Visit: Yes Status: Acute Code(s): R78.81 - BACTEREMIA SNOMED Code( s): 8589780 Comment: - MSSA, on oxacillin day # 6 - Echo negative for vegetations. ALVARO 02/07/19 negative for vegetations. - Repeat blood C&S x 2 on 02/05 still growing Staph aureus. I did consult with ID if we should repeat versus proceeding with WBC tag scan. For now recommended to repeat BC done on 02/09/19. Patient will needs to have Abx for 2 weeks from last negative blood cultures which we do not have negative blood cutlure as of today 02/09/19 yet! (2) Intravenous drug abuse Current Visit: Yes Status: Acute Code(s): F19.10 - OTHER PSYCHOACTIVE SUBSTANCE ABUSE, UNCOMPLICATED SNOMED Code(s): 148165399 Comment: - No evidence of withdrawal, on methadone 10 mg Q6hr. It was already initiated - Social work consult placed - Psych consult appreciated. No treatment for depression recommended. - No opiate therapy other than the methadone, no suboxone as he needs to be in a program for the inductions and either maintenance or detox. - I added gabapentin to him as he is complaining of pain (3) Depression Current Visit: Yes Status: Acute Code(s): F32.9 - MAJOR DEPRESSIVE DISORDER , SINGLE EPISODE, UNSPECIFIED SNOMED Code(s): 07211312 Comment: - No evidence of withdrawal, on methadone 10 mg Q6hr. It was already initiated - Social work consult placed - Psych consult appreciated. No treatment for depression recommended. - No opiate therapy other than the methadone, no suboxone as he needs to be in a program for the inductions and either maintenance or detox. - I added gabapentin to him as he is complaining of pain (4) DVT prophylaxis Current Visit: Yes Status: Acute Code(s): TSP6373 - SNOMED Code(s): 154049660 Comment: - SCDs
[2019-02-09] MEDS: Nicotine Patch Removal NOTE PATCH OFF SCH (21:27)
[2019-02-09 21:41] LABS: Stool Helicobacter pylori Ag Negative (Negative)
[2019-02-10] MEDS: Oxacillin(*) 2 GM in NS 0.9% 100 ML* 100 ML IVPB SCH ×3 (00:01→07:53)
[2019-02-10] MEDS: Methadone TAB* 10 MG PO SCH ×4 (00:04→07:56)
[2019-02-10] MEDS: Docusate CAP* 100 MG PO SCH (07:58)
[2019-02-10] MEDS: Magnesium Oxide TAB* 400 MG PO SCH (07:58)
[2019-02-10] MEDS: Gabapentin CAP(*) 300 MG PO SCH (07:58)
[2019-02-10] MEDS: Nicotine PATCH 21 MG/24 HR* PATCH TRANSDERM SCH (07:59)
[2019-02-10] MEDS: Senna TAB PO SCH (07:59)
[2019-02-10] MEDS: Pantoprazole TAB * 40 MG TAB PO SCH (07:59)
[2019-02-10] MEDS: Potassium Chlor TAB* 20 MEQ TAB.ER PO SCH (07:59)
[2019-02-10] MEDS: Zinc Sulfate CAP* 220 MG PO SCH (07:59)
--- NOTE | 2019-02-10 14:13 | DS ---
DISCHARGE/AMA SUMMARY: DATE OF ADMISSION: 02/03/19 DATE OF DISCHARGE: Signed himself AMA on 02/10/19. FINAL DIAGNOSES: 1. Staphylococcus aureus bacteremia. 2. History of intravenous drug abuse. 3. Depression. HOSPITAL COURSE: The patient was admitted to [facility] on 02/03/19 via the emergency room for diffuse body ache. He was admitted due to positive blood cultures, which were done on a previous ER visit that turned back to be positive. He was started on oxacillin intravenously. Repeat blood cultures on admission 02/03/19 did grow the Staphylococcus aureus that was methicillin- sensitive and a repeat blood culture on 02/05/19 was persistently positive. A 2D echocardiogram was done, which did not show evidence of vegetation. This one was followed by a ALVARO, which did also rule out any vegetation with no significant valve lesion or vegetation seen and at that time, recommendation was to repeat the ALVARO in 1 to 2 weeks if his bacteremia persisted. Therefore, the patient had a repeat blood culture on 02/09/19 and as of today 02/10/19, his preliminary report so far reveals no growth. I visited with the patient this morning. I updated him on his blood cultures and I informed that so far his blood culture is negative. He was very pleasant, very appreciative and I informed him that the plan is to maintain him on IV antibiotics for 2 weeks from his last negative blood culture and around 12:40, I was paged stating that the patient wanted to sign AMA. Prior to my arrival to the floor around 1 o' clock, within 20 minutes, the patient has already left, declined staying, he signed the AMA form. Hence, the dictation of this report reflecting the patient leaving the hospital against medical advice. INPATIENT DIAGNOSTIC STUDIES: MRI of the cervical spine reveals no abnormal findings, no abnormal intake. 2D echo: Normal ejection fraction on 02/04/19. No evidence of vegetation. ALVARO, 02/07/19: No vegetation or valvular disease. Ejection fraction normal 55 % to 60%. EGD done for subjective complaint of dysphagia, which showed some gastritis with erosive gastritis, recommended PPI. CBC, persistent leukocytosis with elevated ESR as high as 94 and CRP initially 130 down to 17 on 02/08/19. Blood cultures positive on 02/03/19 x2 for Staphylococcus aureus, MSSA. Repeat blood culture, 02/05/19, positive for 3 bottles for MSSA. Blood culture, 02/09/19, no growth for 1 day so far. DISCHARGE MEDICATIONS: None as the patient did leave the hospital AMA and left prior to being evaluated by the provider. DISCHARGE DISPOSITION: Home/retirement. DISCHARGE CONDITION: Guarded. He is at high risk of readmission and was informed of the potential cause of . [id number]/[facility] #: [id number] [place]
== END 2019-02-10 12:55 | disposition left against medical advice (07) | DRG 724 ==
LOC: ED 02:20 → MEDTELE 04:11
PROVIDERS: ADMIT Internal Medicine; ATTEND Internal Medicine
PROC: 0DJ08ZZ Inspection of Upper Intestinal Tract, Via Natural or Artificial Opening Endoscopic (ICD-10-PCS; principal; 2019-02-07 09:30)
PROC: B246ZZ4 Ultrasonography of Right and Left Heart, Transesophageal (ICD-10-PCS; 2019-02-07 09:30)
DX: R78.81 Bacteremia (principal); E87.1 Hypo-osmolality and hyponatremia; K59.00 Constipation, unspecified; E87.8 Other disorders of electrolyte and fluid balance, not elsewhere classified; B19.20 Unspecified viral hepatitis C without hepatic coma; B95.61 Methicillin susceptible Staphylococcus aureus infection as the cause of diseases classified elsewhere; F17.210 Nicotine dependence, cigarettes, uncomplicated; R13.10 Dysphagia, unspecified; I37.1 Nonrheumatic pulmonary valve insufficiency; I08.1 Rheumatic disorders of both mitral and tricuspid valves; K20.8 Other esophagitis; K29.70 Gastritis, unspecified, without bleeding; F32.9 Major depressive disorder, single episode, unspecified; F11.14 Opioid abuse with opioid-induced mood disorder; F14.99 Cocaine use, unspecified with unspecified cocaine-induced disorder; F15.99 Other stimulant use, unspecified with unspecified stimulant-induced disorder; Z91.14 Patient's other noncompliance with medication regimen; Z59.0 Homelessness; Z72.89 Other problems related to lifestyle; Z86.19 Personal history of other infectious and parasitic diseases; Z53.21 Procedure and treatment not carried out due to patient leaving prior to being seen by health care provider; R43.8 Other disturbances of smell and taste
CPT/HCPCS: 36415; 71046; 72156; 80048; 80053; 81003; 81015; 82248; 83605; 83735; 84100; 84484; 85025; 85610; 85652; 85730; 86140; 86703; 87040; 87077; 87086; 87150; 87186; 87205; 87338; 93005; 93306; 99285; A9270-GY; A9579; J1885; J2250; J2270; J2700; J2704; J3010